=== PATIENT | female | born 1940 | race Caucasian/White ===

== ENCOUNTER → 2016-05-16 | Outpatient (CLI) | payer MEDICARE, OTHER ==
[~2016-05-16] MED LIST: /CLON1TA OR; ARTHROTEC PO; EFFE150C OR; FURO20TA2 OR; MULTIVIT PO; hydrocodone PO
--- NOTE | 2016-05-16 10:51 | REPMRS ---
Patient History The patient states she had a clinical breast exam in 2015. Patient has history of breast cancer at age 61. Family history of breast cancer in 2 sisters at age 50, breast cancer in mother at age 50, and unknown cancer in brother at age 45. Digital Mammo Screening Bilat: May 16, 2016 - Exam #: [id number] Bilateral CC and MLO view(s) were taken. Technologist: Karla Shanks, Technologist Prior study comparison: May 13, 2015, bilateral digital mammo screening bilat performed at [facility]. May 12, 2014, bilateral digital mammo screening bilat performed at [facility]. May 06, 2013, bilateral digital mammo screening bilat performed at [facility]. FINDINGS: There are scattered fibroglandular densities. There has been no change in the appearance of the mammogram from the prior studies. There are stable post treatment changes in the left breast. There is a mild amount of scattered fibroglandular density which is fairly symmetric. There is no interval development of dominant mass, architectural distortion, or clustered microcalcification suggestive of malignancy. ASSESSMENT: BI-RADS/ACR category 1 mammogram. Negative. Recommendation Routine screening mammogram in 1 year (for women over age 40). This mammogram was interpreted with the aid of an FDA-approved computer-aided dectection system. Electronically Signed By: Varghese Zavala MD 05/16/16 [id number]
== END ==
LOC: M RAD 10:16
PROVIDERS: ATTEND Internal Medicine Medical Oncology
DX: Z12.31 Encounter for screening mammogram for malignant neoplasm of breast (principal); Z85.3 Personal history of malignant neoplasm of breast; Z08 Encounter for follow-up examination after completed treatment for malignant neoplasm

== ENCOUNTER → 2017-05-17 | Outpatient (CLI) | payer MEDICARE, OTHER | LOC: M RAD 10:33 | DX: Z12.4 Encounter for screening for malignant neoplasm of cervix (principal); Z12.31 Encounter for screening mammogram for malignant neoplasm of breast | CPT/HCPCS: 77067 ==

== ENCOUNTER → 2017-06-08 | Outpatient (CLI) | payer MEDICARE, OTHER ==
[2017-06-08 20:12] LABS: BASO % 0.4 % (0.0-1.0); EOS % 0.9 % (0.0-3.0); HEMATOCRIT 40.3 % (36.0-47.0); HEMOGLOBIN 13.3 g/dl (12.0-16.0); LYMPH # 1.4 10^3/uL (1.5-4.5); LYMPH % 30.5 % (24.0-44.0); MEAN CORPUSCULAR HEMOGLOBIN 28.9 pg (27.0-33.0); MEAN CORPUSCULAR VOLUME 87.6 fl (80.0-96.0); MONO # 0.6 10^3/uL (0.0-0.8); MONO % 11.9 % (0.0-5.0); NEUTROPHILS # 2.6 10^3/uL (1.8-7.7); NEUTROPHILS % 56.3 % (36.0-66.0); PLATELET COUNT, AUTOMATED 263 10^3/uL (150-450); RED CELL DISTRIBUTION WIDTH 11.6 % (11.5-14.5); WHITE BLOOD COUNT 4.6 10^3/uL (4.0-10.0)
[2017-06-08 20:34] LABS: ALBUMIN 3.8 GM/DL (3.2-5.2); ALKALINE PHOSPHATASE 78 U/L (45-117); ALT/SGPT 19 U/L (12-78); ANION GAP 9 MEQ/L (8-16); AST/SGOT 17 U/L (7-37); BILIRUBIN,TOTAL 0.4 MG/DL (0.2-1.0); BLOOD UREA NITROGEN 18 MG/DL (7-18); CALCIUM LEVEL 8.5 MG/DL (8.8-10.2); CARBON DIOXIDE LEVEL 31 MEQ/L (21-32); CHLORIDE LEVEL 97 MEQ/L (98-107); CREATININE FOR GFR 1.03 MG/DL (0.55-1.30); GLOMERULAR FILTRATION RATE 55.8 (>39); GLUCOSE, FASTING 94 MG/DL (70-100); POTASSIUM SERUM 4.1 MEQ/L (3.5-5.1); SODIUM LEVEL 137 MEQ/L (136-145); TOTAL PROTEIN 7.6 GM/DL (6.4-8.2)
== END ==
LOC: M ADAMS 13:43
DX: R42 Dizziness and giddiness (principal); J20.9 Acute bronchitis, unspecified
CPT/HCPCS: 80053

== ENCOUNTER 2018-07-27 16:42 | Emergency (ER) | payer MEDICARE, OTHER ==
[~2018-07-27] VITALS: Ht 162.6 cm; Wt 87.3 kg
[~2018-07-27 16:42] MED LIST changes: -ECOT81TA5 PO; -FURO40TA2; -POTA20TA6; -ZOFR4TAB16 PO
[2018-07-27] MEDS ORDERED: ECOT81TA5 PO (16:55)
[2018-07-27] MEDS ORDERED: FURO40TA2 (16:55)
[2018-07-27] MEDS ORDERED: POTA20TA6 (16:55)
[2018-07-27] MEDS ORDERED: NS 1,000 ML IV ONE (17:30)
[2018-07-27 17:33] LABS: BASO % 0.5 % (0.0-1.0); EOS # 0.1 10^3/uL (0.0-0.50); EOS % 1.4 % (0.0-3.0); HEMATOCRIT 42.3 % (36.0-47.0); LYMPH # 2.2 10^3/uL (1.5-4.5); LYMPH % 32.9 % (24.0-44.0); MEAN CORPUSCULAR HEMOGLOBIN 29.6 pg (27.0-33.0); MEAN CORPUSCULAR HGB CONC 33.1 g/dl (32.0-36.5); MEAN CORPUSCULAR VOLUME 89.4 fl (80.0-96.0); MONO # 0.6 10^3/uL (0.0-0.8); MONO % 9.7 % (0.0-5.0); NEUTROPHILS # 3.7 10^3/uL (1.8-7.7); NEUTROPHILS % 55.2 % (36.0-66.0); PLATELET COUNT, AUTOMATED 274 10^3/uL (150-450); RED BLOOD COUNT 4.73 10^6/uL (4.00-5.40); WHITE BLOOD COUNT 6.6 10^3/uL (4.0-10.0)
[2018-07-27 18:02] LABS: BILIRUBIN,DIRECT 0.1 MG/DL (0.0-0.2); BILIRUBIN,TOTAL 0.6 MG/DL (0.2-1.0); CALCIUM LEVEL 9.7 MG/DL (8.8-10.2); CREATININE FOR GFR 1.48 MG/DL (0.55-1.30); GLOMERULAR FILTRATION RATE 36.6 (>39); POTASSIUM SERUM 3.8 MEQ/L (3.5-5.1)
--- NOTE | 2018-07-27 18:45 | REP ---
Acute abdomen series: Three views. History: Abdomen pain. Comparison study: June 08, 2017. Findings: Upright chest radiograph shows no evidence of infiltrate or free subdiaphragmatic air. Heart is not enlarged. EKG electrodes are seen. There are clips in the right upper quadrant of the abdomen and in the left axillary soft tissues. Supine and cross-table lateral views of the abdomen show no evidence of free intraperitoneal air. Right upper quadrant clips are noted. Bowel gas pattern is unremarkable. Air and stool is seen in a nondistended colon. No small bowel dilation is seen. The patient is status post lumbar laminectomy L4 and L5. Impression: Unremarkable bowel gas pattern. Right upper quadrant clips. No acute abnormality. Electronically Signed by James Zavala MD 07/27/2018 08:14 P
[2018-07-27] MEDS ORDERED: ZOFR4TAB16 PO (21:21)
[2018-07-27] MEDS ORDERED: ONDANSETRON 4 MG ORAL DISINTEGRATING TAB (Q0162 PER 1MG) PO ONE (21:30)
[2018-07-27 21:31] VITALS: BP 122/56
--- NOTE | 2018-07-27 22:01 | ECGEPIP ---
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
== END 2018-07-27 22:04 | disposition home or self-care (01) ==
LOC: M ED 16:42
DX: N17.9 Acute kidney failure, unspecified (principal); E86.0 Dehydration; F33.9 Major depressive disorder, recurrent, unspecified; M19.90 Unspecified osteoarthritis, unspecified site; G89.29 Other chronic pain; M54.9 Dorsalgia, unspecified; Z79.899 Other long term (current) drug therapy; Z79.82 Long term (current) use of aspirin; Z88.5 Allergy status to narcotic agent
CPT/HCPCS: 36415; 74021; 80048; 80076; 82150; 83690; 85025; 93005; 93041; 99285; Q0162

== ENCOUNTER → 2018-07-27 | Outpatient (REF) | payer MEDICARE, OTHER ==
[~2018-07-27] MED LIST changes: -/CLON1TA OR; +CLON-412 OR; +ECOT81TA5 PO; +FURO40TA2; +POTA20TA6; +ZOFR4TAB16 PO
[2018-07-27 17:33] LABS: AMYLASE 35 U/L (25-115); LIPASE 115 U/L (73-393)
== END ==
LOC: M LAB REF 16:52
PROVIDERS: ATTEND Nurse Practitioner Family
DX: R10.9 Unspecified abdominal pain (principal)

== ENCOUNTER → 2018-09-19 | Outpatient (CLI) | payer MEDICARE, OTHER ==
[~2018-09-19] MED LIST changes: +E-Z-GAS II EFFERVESCENT PACKET (SODIUM BICARB./CITRIC ACID/SIMETHICONE) As Ordered ONE; +E-Z-HD 98% w/w 340GM SUSP BTL As Ordered ONE; +E-Z-PAQUE 96% w/w SUSP 176GM BTL As Ordered ONE; +ECOT81TA5 PO; +FURO40TA2; +POTA20TA6; +ZOFR4TAB16 PO
--- NOTE | 2018-09-19 20:09 | REP ---
Examination Requested: Upper G.I. Series With KUB Reason For Exam: Nausea lack of appetite Upper GI Air Contrast The procedure was performed by FRANKLIN Bill, under the direct supervision of Dr. White. The images were reviewed with Dr. White. The cleat feeder film shows no organomegaly or pathological masses. The intestinal gas pattern appears normal. Surgical melissa are noted in the right upper quadrant. Liquid barium and gas producing crystals were given in the erect position as well as liquid barium in the prone oblique position in order to perform a double contrast upper GI examination. The oral and pharyngeal stages of deglutition were unremarkable. Esophageal transport is efficient and there is no esophagitis, stricture, or mucosal ring noted. There are mild tertiary contractions noted throughout the exam. There is a small hiatal hernia. Gastroesophageal reflux was noted throughout the course of the exam. The stomach restrepo are normally outlined. The rugal folds are smooth and regular. There is no gastritis, neoplasm, ulcer disease noted. The duodenal restrepo are normally outlined. There is a large duodenal diverticulum. The mucosal folds are smooth and regular. There is no duodenitis, peptic ulcer disease, or neoplasm noted. The visualized portion of the proximal small bowel appears normal in course and caliber. Impression: 1. Large duodenal diverticulum. 2. Gastroesophageal reflux. 3. Mild tertiary contractions. 4. Small hiatal hernia. 0.8 minutes of fluoroscopy time was utilized for this procedure. Reviewed by FRANKLIN Ma 09/19/2018 05:03 P Electronically Signed by Dony White MD 09/19/2018 08:00 P
== END ==
LOC: M RAD 09:51
PROVIDERS: ATTEND Internal Medicine
DX: R11.0 Nausea (principal); R63.0 Anorexia; K57.10 Diverticulosis of small intestine without perforation or abscess without bleeding; K21.9 Gastro-esophageal reflux disease without esophagitis; K44.9 Diaphragmatic hernia without obstruction or gangrene

== ENCOUNTER 2019-10-30 14:06 | Emergency (ER) | payer MEDICARE, OTHER ==
[~2019-10-30 14:06] MED LIST changes: -E-Z-GAS II EFFERVESCENT PACKET (SODIUM BICARB./CITRIC ACID/SIMETHICONE) As Ordered ONE; -E-Z-HD 98% w/w 340GM SUSP BTL As Ordered ONE; -E-Z-PAQUE 96% w/w SUSP 176GM BTL As Ordered ONE
[2019-10-30 15:01] LABS: BASO % 0.5 % (0.0-1.0); EOS # 0.1 10^3/uL (0.0-0.5); HEMOGLOBIN 13.8 g/dl (12.0-15.5); LYMPH # 1.4 10^3/uL (1.5-5.0); LYMPH % 21.1 % (24.0-44.0); MEAN CORPUSCULAR HEMOGLOBIN 29.4 pg (27.0-33.0); MEAN CORPUSCULAR HGB CONC 32.9 g/dl (32.0-36.5); MEAN CORPUSCULAR VOLUME 89.4 fl (80.0-96.0); MONO # 0.6 10^3/uL (0.0-0.8); MONO % 8.9 % (0.0-5.0); NEUTROPHILS # 4.4 10^3/uL (1.5-8.5); NEUTROPHILS % 67.3 % (36.0-66.0); PLATELET COUNT, AUTOMATED 312 10^3/uL (150-450); WHITE BLOOD COUNT 6.5 10^3/uL (4.0-10.0)
[2019-10-30 15:10] LABS: INR 1.13; PROTHROMBIN TIME 14.2 SECONDS (11.8-14.0)
[2019-10-30 15:11] LABS: PARTIAL THROMBOPLASTIN TIME 31.6 SECONDS (25.0-38.4)
[2019-10-30 15:37] LABS: ALBUMIN 3.7 GM/DL (3.2-5.2); ALT/SGPT 23 U/L (12-78); BILIRUBIN,DIRECT 0.1 MG/DL (0.0-0.2); BILIRUBIN,TOTAL 0.4 MG/DL (0.2-1.0); BLOOD UREA NITROGEN 18 MG/DL (7-18); CALCIUM LEVEL 8.9 MG/DL (8.8-10.2); CARBON DIOXIDE LEVEL 32 MEQ/L (21-32); CHLORIDE LEVEL 103 MEQ/L (98-107); CK-MB VALUE MASS < 1.0 NG/ML (<3.6); CPK CREATINE PHOSPHOKINASE 50 U/L (26-192); CREATININE FOR GFR 1.24 MG/DL (0.55-1.30); FREE T4 1.18 NG/DL (0.76-1.46); GLOMERULAR FILTRATION RATE 44.8 (>39); GLUCOSE, FASTING 117 MG/DL (70-100); LIPASE 117 U/L (73-393); POTASSIUM SERUM 4.3 MEQ/L (3.5-5.1); SODIUM LEVEL 141 MEQ/L (136-145); TOTAL PROTEIN 7.5 GM/DL (6.4-8.2); TROPONIN I < 0.02 NG/ML (< 0.10)
[2019-10-30] MEDS ORDERED: ISOVUE-370 76% 100ML VIAL As Ordered ONE (16:05)
--- NOTE | 2019-10-30 16:42 | REPVR ---
PROCEDURE INFORMATION: Exam: CT Head Without Contrast Exam date and time: 10/30/2019 4:04 PM Age: 78 years old Clinical indication: Dizziness TECHNIQUE: Imaging protocol: Computed tomography of the head without contrast. Radiation optimization: All CT scans at this facility use at least one of these dose optimization techniques: automated exposure control; mA and/or kV adjustment per patient size (includes targeted exams where dose is matched to clinical indication); or iterative reconstruction. COMPARISON: No relevant prior studies available. FINDINGS: Brain: Frontal lobe predominant cerebral volume loss as well as cerebellar volume loss. No hemorrhage or edema seen. Ventricles: The ventricles appear mildly enlarged in keeping with volume loss. Bones/joints: Unremarkable. No acute fracture. Sinuses: Visualized sinuses are unremarkable. No fluid levels. Mastoid air cells: Visualized mastoid air cells are well aerated. Soft tissues: Unremarkable. IMPRESSION: No acute intracranial abnormality seen. Electronically signed by: Andreea Hall On 10/30/2019 16:42:01 PM
--- NOTE | 2019-10-30 17:22 | REP ---
CHEST: REASON: Chest pain. COMPARISON: Frontal view, obtained as part of an abdominal series, 07/27/2018. The technique utilized in obtaining the radiograph has magnified the cardiac silhouette and accentuated the interstitial markings. FINDINGS: The superior mediastinal structures are midline. The cardiac silhouette is unremarkable in size, shape, and position. The diaphragmatic surfaces of the lungs are regular, and the costophrenic angles are clear. The pulmonary hardin are clear. The imaged osseous structures are intact. IMPRESSION: There is no acute cardiopulmonary disease. Electronically Signed by Jamil Smith DO 10/30/2019 06:46 P
--- NOTE | 2019-10-30 17:53 | ECGEPIP ---
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
[2019-10-30] MEDS ORDERED: NS 500 ML IV ONE (18:15)
[2019-10-30 19:30] VITALS: BP 117/60
[2019-10-30 19:53] VITALS: O2SAT 100
--- NOTE | 2019-10-31 02:45 | REP ---
REASON: Lower quadrant pain. COMPARISON: None. CONTRAST: 100 mL [id number]. The lung bases are clear. There are surgical clips in the gallbladder fossa from previous cholecystectomy. The liver, spleen, pancreas, adrenal glands, and kidneys are within normal limits. There are tiny bilateral renal cortical cysts. The abdominal aorta and para-aortic regions are within normal limits. There is colonic diverticulosis. The bowel loops and their mesenteries are otherwise unremarkable. There is no free fluid or free air. There is no mass or adenopathy. Bone window technique throughout the examination shows the osseous structures to be within normal limits for the patient's age of 78 years. IMPRESSION: 1. Colonic diverticulosis without evidence of diverticulitis. 2. Tiny incidental renal cysts. 3. No evidence of acute intra-abdominal or intrapelvic disease. Electronically Signed by Jamil Smith DO 10/31/2019 08:10 A
== END 2019-10-30 20:00 | disposition home or self-care (01) ==
LOC: M ED 14:06
DX: R55 Syncope and collapse (principal); G43.909 Migraine, unspecified, not intractable, without status migrainosus; F32.9 Major depressive disorder, single episode, unspecified; F41.9 Anxiety disorder, unspecified; G47.33 Obstructive sleep apnea (adult) (pediatric); Z85.3 Personal history of malignant neoplasm of breast; I87.2 Venous insufficiency (chronic) (peripheral); K57.30 Diverticulosis of large intestine without perforation or abscess without bleeding; N28.1 Cyst of kidney, acquired; Z79.82 Long term (current) use of aspirin; Z79.899 Other long term (current) drug therapy; Z88.5 Allergy status to narcotic agent
CPT/HCPCS: 36415; 70450; 71045; 74177; 80048; 80076; 82550; 82553; 83690; 84439; 84443; 84484; 85025; 85610; 85730; 93005; 93041; 94760; 96360; 99285; Q9967

== ENCOUNTER 2021-02-17 12:42 | Emergency (ER) | payer MEDICARE, OTHER ==
[~2021-02-17] VITALS: Ht 162.6 cm; Wt 95.5 kg
[2021-02-17 12:44] VITALS: BP 131/67
--- OUTSIDE RECORDS SUMMARY | 2021-02-17 12:50 | CCD ---
Author Author [facility] Organization [facility] Address Unknown Phone Unavailable Care Team Providers Care Senior Contract Specialist Name Role Phone Андрей Urbina MD Unavailable Unavailable Андрей Urbina MD Unavailable Unavailable Андрей Urbina MD Unavailable Unavailable Андрей Urbina MD Unavailable Unavailable Андрей Urbina MD Unavailable Unavailable Андрей Urbina MD Unavailable Unavailable Андрей Urbina MD Unavailable Unavailable Андрей Urbina MD Unavailable Unavailable Андрей Urbina MD Unavailable Unavailable Андрей Urbina MD Unavailable Unavailable Андрей Urbina MD Unavailable Unavailable Андрей Urbina MD Unavailable Unavailable Андрей Urbina MD Unavailable Unavailable Андрей Urbina MD Unavailable Unavailable Андрей Urbina MD Unavailable Unavailable Андрей Urbina MD Unavailable Unavailable Андрей Urbina MD Unavailable Unavailable Андрей Urbina MD Unavailable Unavailable Андрей Urbina MD Unavailable Unavailable Андрей Urbina MD Unavailable Unavailable Андрей Urbina MD Unavailable Unavailable Андрей Urbina MD Unavailable Unavailable Андрей Urbina MD Unavailable Unavailable Андрей Urbina MD Unavailable Unavailable Аднрей Urbina MD Unavailable Unavailable Андрей Urbina MD Unavailable Unavailable Андрей Urbina MD Unavailable Unavailable Андрей Urbina MD Unavailable Unavailable Андрей Urbina MD Unavailable Unavailable Андрей Urbina MD Unavailable Unavailable Андрей Urbina MD Unavailable Unavailable Андрей Urbina MD Unavailable Unavailable Андрей Urbina MD Unavailable Unavailable Андрей Urbina MD Unavailable Unavailable Андрей Urbina MD Unavailable Unavailable Андрей Urbina MD Unavailable Unavailable Андрей Urbina MD Unavailable Unavailable [place]Ан[place]рей MD Unavailable Unavailable CarlitosАндрей MD Unavailable Unavailable CarlitosАндрей MD Unavailable Unavailable CarlitosАндрей MD Unavailable Unavailable [place], Андрей Mendoza MD Unavailable Unavailable [place] MD Unavailable Unavailable CarlitosАндрей MD Unavailable Unavailable [place]ей MD Unavailable Unavailable [place]Ан[place]рей MD Unavailable Unavailable [place]рей MD Unavailable Unavailable [place]Ан[place]рей MD Unavailable Unavailable [place]Ан[place]рей MD Unavailable Unavailable [place]Ан[place]рей MD Unavailable Unavailable CarlitosАндрей MD Unavailable Unavailable CarlitosАндрей MD Unavailable Unavailable [place]Ан[place]рей MD Unavailable Unavailable [place]Ан[place]рей MD Unavailable Unavailable [place]Ан[place]ей MD Unavailable Unavailable CarlitosАндрей MD Unavailable Unavailable [place]Андрей MD Unavailable Unavailable CarlitosАндрей MD Unavailable Unavailable CarlitosАндрей MD Unavailable Unavailable CarlitosАндрей MD Unavailable Unavailable [place] MD Unavailable Unavailable CarlitosАндрей MD Unavailable Unavailable CarlitosАндрей MD Unavailable Unavailable [place] MD Unavailable Unavailable CarlitosАндрей MD Unavailable Unavailable [place] MD Unavailable Unavailable [place]Андрей MD Unavailable Unavailable CarlitosАндрей MD Unavailable Unavailable [place] MD Unavailable Unavailable [place]ей MD Unavailable Unavailable [place] MD Unavailable Unavailable CarlitosАндрей MD Unavailable Unavailable CarlitosАндрей horner MD Unavailable Unavailable CarlitosАндрей MD Unavailable Unavailable [place] MD Unavailable Unavailable CarlitosАндрей MD Unavailable Unavailable [place]Ан[place] MD Unavailable Unavailable [place]Ан[place]рей MD Unavailable Unavailable CarlitosАндрей MD Unavailable Unavailable CarlitosнАдрей MD Unavailable Unavailable [place]Ан[place] MD Unavailable Unavailable CarlitosАндрей MD Unavailable Unavailable [place] MD Unavailable Unavailable [place] MD Unavailable Unavailable CarlitosАндрей MD Unavailable Unavailable [place] MD Unavailable Unavailable Potter, M Abimbola EXECUTIVE CASINO HOST Unavailable Unavailable Potter, M Abimbola EXECUTIVE CASINO HOST Unavailable Unavailable Potter, M Abimbola EXECUTIVE CASINO HOST Unavailable Unavailable Potter, M Abimbola EXECUTIVE CASINO HOST Unavailable Unavailable Potter, M Abimbola EXECUTIVE CASINO HOST Unavailable Unavailable Potter, M Abimbola EXECUTIVE CASINO HOST Unavailable Unavailable Potter, M Abimbola EXECUTIVE CASINO HOST Unavailable Unavailable Potter, M Abimbola EXECUTIVE CASINO HOST Unavailable Unavailable Potter, M Abimbola EXECUTIVE CASINO HOST Unavailable Unavailable Potter, M Abimbola EXECUTIVE CASINO HOST Unavailable Unavailable Potter, M Abimbola EXECUTIVE CASINO HOST Unavailable Unavailable Potter, M Abimbola EXECUTIVE CASINO HOST Unavailable Unavailable Potter, M Abimbola EXECUTIVE CASINO HOST Unavailable Unavailable Potter, M Abimbola EXECUTIVE CASINO HOST Unavailable Unavailable Potter, M Abimbola EXECUTIVE CASINO HOST Unavailable Unavailable Potter, M Abimbola EXECUTIVE CASINO HOST Unavailable Unavailable Potter, M Abimbola EXECUTIVE CASINO HOST Unavailable Unavailable Potter, M Abimbola EXECUTIVE CASINO HOST Unavailable Unavailable Potter, M Abimbola EXECUTIVE CASINO HOST Unavailable Unavailable Potter, M Abimbola EXECUTIVE CASINO HOST Unavailable Unavailable Potter, M Abimbola EXECUTIVE CASINO HOST Unavailable Unavailable Potter, M Abimbola EXECUTIVE CASINO HOST Unavailable Unavailable Potter, M Abimbola EXECUTIVE CASINO HOST Unavailable Unavailable Potter, M Abimbola EXECUTIVE CASINO HOST Unavailable Unavailable Potter, M Abimbola EXECUTIVE CASINO HOST Unavailable Unavailable Potter, M Abimbola EXECUTIVE CASINO HOST Unavailable Unavailable Potter, M Abimbola EXECUTIVE CASINO HOST Unavailable Unavailable Potter, M Abimbola EXECUTIVE CASINO HOST Unavailable Unavailable Potter, M Abimbola EXECUTIVE CASINO HOST Unavailable Unavailable Potter, M Abimbola EXECUTIVE CASINO HOST Unavailable Unavailable Potter, M Abimbola EXECUTIVE CASINO HOST Unavailable Unavailable Potter, M Abimbola EXECUTIVE CASINO HOST Unavailable Unavailable Potter, M Abimbola EXECUTIVE CASINO HOST Unavailable Unavailable Potter, M Abimbola EXECUTIVE CASINO HOST Unavailable Unavailable Potter, M Abimbola EXECUTIVE CASINO HOST Unavailable Unavailable Potter, M Abimbola EXECUTIVE CASINO HOST Unavailable Unavailable Potter, M Abimbola EXECUTIVE CASINO HOST Unavailable Unavailable Potter, M Abimbola EXECUTIVE CASINO HOST Unavailable Unavailable Potter, M Abimbola EXECUTIVE CASINO HOST Unavailable Unavailable Potter, M Abimbola EXECUTIVE CASINO HOST Unavailable Unavailable Potter, M Abimbola EXECUTIVE CASINO HOST Unavailable Unavailable Potter, M Abimbola EXECUTIVE CASINO HOST Unavailable Unavailable Potter, M Abimbola EXECUTIVE CASINO HOST Unavailable Unavailable Potter, M Abimbola EXECUTIVE CASINO HOST Unavailable Unavailable Potter, M Abimbola EXECUTIVE CASINO HOST Unavailable Unavailable Potter, M Abimbola EXECUTIVE CASINO HOST Unavailable Unavailable Potter, M Abimbola EXECUTIVE CASINO HOST Unavailable Unavailable Potter, M Abimbola EXECUTIVE CASINO HOST Unavailable Unavailable Potter, M Abimbola EXECUTIVE CASINO HOST Unavailable Unavailable Potter, M Abimbola EXECUTIVE CASINO HOST Unavailable Unavailable Potter, M Abimbola EXECUTIVE CASINO HOST Unavailable Unavailable Potter, M Abimbola EXECUTIVE CASINO HOST Unavailable Unavailable Potter, M Abimbola EXECUTIVE CASINO HOST Unavailable Unavailable Potter, M Abimbola EXECUTIVE CASINO HOST Unavailable Unavailable Potter, M Abimbola EXECUTIVE CASINO HOST Unavailable Unavailable Potter, M Abimbola EXECUTIVE CASINO HOST Unavailable Unavailable Potter, M Abimbola EXECUTIVE CASINO HOST Unavailable Unavailable Ebony Karimi NP Unavailable Unavailable Re-disclosure Warning The records that you are about to access may contain information from federally-assisted alcohol or drug abuse programs. If such information is present, then the following federally mandated warning applies: This information has been disclosed to you from records protected by federal confidentiality rules (42 CFR part 2). The federal rules prohibit you from making any further disclosure of this information unless further disclosure is expressly permitted by the written consent of the person to whom it pertains or as otherwise permitted by 42 CFR part 2. A general authorization for the release of medical or other information is NOT sufficient for this purpose. The Federal rules restrict any use of the information to criminally investigate or prosecute any alcohol or drug abuse patient.The records that you are about to access may contain highly sensitive health information, the redisclosure of which is protected by Article 27-F of the [facility] Public Health law. If you continue you may have access to information: Regarding HIV / AIDS; Provided by facilities licensed or operated by the [facility] Office of Mental Health; or Provided by the [facility] Office for People With Developmental Disabilities. If such information is present, then the following [facility] mandated warning applies: This information has been disclosed to you from confidential records which are protected by state law. State law prohibits you from making any further disclosure of this information without the specific written consent of the person to whom it pertains, or as otherwise permitted by law. Any unauthorized further disclosure in violation of state law may result in a fine or penitentiary sentence or both. A general authorization for the release of medical or other information is NOT sufficient authorization for further disc losure. Family History Family Member Name Family Member Gender Family Member Status Date o f Status Description Data Source(s) Unknown Female Problem [facility] ([facility]) Unknown Female Problem [facility] ([facility]) Unknown Female Problem [facility] ([facility]) Unknown Female Problem [facility] ([facility]) Unknown Unknown Problem [facility] ([facility]) Encounters Encounter Providers Location Date Indications Data Source(s ) Outpatient Attender: Abimbola Karimi NP 02/09/2021 01:45:0 0 PM EDT Xray [facility] Xray Outpatient Attender: Reji Medellin 0 04/23/2020 08:40:00 AM EST [facility] ([facility] ) Immunizations Vaccine Date Status Description Data Source(s) COVID-19 VACCINE Moderna 07/13/2020 12:00:00 AM EDT completed [facility] Vaccine Series Complete: YESThis Data wa s Submitted to [facility] Via [employer]. COVID-19 VACCINE Moderna 06/14/2020 12:00:00 AM EST completed [facility] Vaccine Series Complete: NOThis Data was Submitted to [facility] Via [employer]. Medications Medication Brand Name Start Date Product Form Dose Route Admi nistrative Instructions Pharmacy Instructions Status Indications Reaction Description Data Source(s) Furosemide 40 MG Oral Tablet Furosemide 04/23/2020 12:00:00 AM EST active [facility] ([facility]) Ondansetron 4 MG Oral Tablet [Zofran] Zofran 11/14/2019 12:00:00 AM EDT ORAL completed [facility] ([facility]) Insurance Providers Payer name Policy type / Coverage type Policy ID Covered democrat ID Covered democrat's relationship to melvin Policy Melvin Plan Information [employer] F [id number] Medicare C [id number] SELF [id number] D MEDICARE [id number] SP [id number] MEDICARE [id number] SP [id number] D MEDICARE M [id number] S [id number] D [place] Primary [id number] Self Billings Omise [facility] Part B [id number] Self OTHER COMMERCIAL [id number] SP [id number] MEDICARE [id number] SP [id number] SELF PAY Medicare Natl Govt Servic Medicare Primary [id number] Self [id number] MEDICARE C [id number] S [id number] D [employer] Commercial [id number] Self [id number] Medicare Natl Gov't Servi Medicare Primary [id number] Self [id number] Medicare Natl Govt Servic Medicare Primary [id number] Self [id number] Medicare Natl Govt Servic Medicare Primary [id number] Self 0 [id number] MEDICARE -O/P [id number] 18 [id number] COMMERCIAL -O/P [id number] 18 [id number] MEDICARE PART A -O/P [id number] 18 [id number] Medicare Dme Supplies Medigap Part B [id number] Self [employer] Medigap Part B [id number] Self Medicare Natl Govt Servic Medicare Primary [id number] Self Medicare Natl Gov't Servi Medicare Primary [id number] Self [employer] [id number] Self [employer] [id number] S [id number] MEDICARE PART A M [id number] S [id number] [employer] [place] [id number] S [id number] D MEDICARE C [id number] S [id number] [id number] [place] [facility] [place] [id number] S [id number] [facility] S [id number] S [id number] [employer] [id number] SP [id number] Medicare Natl Govt Servic Medicare Primary [id number] Self [id number] [employer] Medigap Part B [id number] Self [id number] Medicare Natl Govt Servic Medicare Primary [id number] Self 1 [id number] Medicare Natl Govt Servic Medicare Primary [id number] Self 1 [id number] Medicare Natl Govt Servic Medicare Primary [id number] Self 1 [id number] Problems, Conditions, and Diagnoses No Information Surgeries/Procedures No Information Results ID Date Data Source [id number] 02/09/2021 02:23:00 [place] [address] Patient Name: Mary Melendez Exam Date: 02/09/21 : 1940 Ordering Doctor: Abimbola Karimi Attending Doctor: Abimbola Karimi CC: EXAM: ANKLE, right side, four views. INDICATION: Ankle pain FINDINGS: There is no fracture or dislocation. The ankle mortise is intact. Bone density appears normal, and there is no significant degenerative change. CONCLUSION: Normal ankle. Professional interpretation performed by [facility] Medical Imaging at [facility] . End of diagnostic report: [id number] Signed: Satish Kim MD 02/09/21 1434 Interpreted by: Cipriano Kimcribed by: Satish Kim Name Value Range Interpretation Code Description Data Krupa rce(s) Supporting Document(s) ID Date Data Source [id number] 04/23/2020 10:18:00 AM EST [facility] ([facility]) Name Value Range Interpretation Code Description Data Krupa rce(s) Supporting Document(s) Thyrotropin [Units/volume] in Serum or Plasma by Detec tion limit <= 0.05 mIU/L 3.46 uIU/mL 0.36-3.74 [facility] ([facility] ) ID Date Data Source [id number] 04/23/2020 10:18:00 AM EST [facility] ([facility]) Name Value Range Interpretation Code Description Data Krupa rce(s) Supporting Document(s) Cholesterol [Mass/volume] in Serum or Plasma 246 mg/dL 131-200 [facility] ([facility]) Cholesterol in HDL [Mass/volume] in Serum or Plasma 48 mg/dL 35-60 [facility] ([facility]) Cholesterol in LDL [Mass/volume] in Serum or Plasma by calcu lation 162 CALC 50-159 [facility] ([facility]) Triglyceride [Mass/volume] in Serum or Plasma 180 mg/dL 30-150 [facility] ([facility]) ID Date Data Source [id number] 04/23/2020 10:18:00 AM EST [facility] ([facility]) Name Value Range Interpretation Code Description Data Krupa rce(s) Supporting Document(s) Glucose [Mass/volume] in Serum or Plasma 95 mg/dL 74-99 [facility] ([facility]) 100-125 mg/dL PRE-DIABETES/FASTING >126 mg/dL DIABETES/FASTING Urea nitrogen [Mass/volume] in Serum or Plasma 19 mg/dL 7-18 [facility] ([facility]) Creatinine 1.1 mg/dL 0.6-1.3 [facility] ([facility]) Sodium [Moles/volume] in Serum or Plasma 140 meq/L 136-145 [facility] ([facility]) Carbon dioxide, total [Moles/volume] in Serum or Plasma 33 meq/L 21 -32 [facility] ([facility]) Chloride [Moles/volume] in Serum or Plasma 102 meq/L 98-107 [facility] ([facility]) Potassium [Moles/volume] in Serum or Plasma 3.8 meq/L 3.5-5.1 [facility] ([facility]) Calcium [Mass/volume] in Serum or Plasma 8.5 mg/dL 8.5-10.1 [facility] ([facility]) Total Bilirubin 0.7 mg/dL 0.2-1.0 [facility] ([facility]) Alkaline phosphatase isoenzyme [Units/volume] in Serum or Pl asma 84 mg/dL 46-116 [facility] ([facility]) Alanine aminotransferase [Enzymatic activity/volume] in Seru m or Plasma 22 U/L 12-78 [facility] ([facility]) Aspartate aminotransferase [Enzymatic activity/volume] in Serum or Plasma 18 U/L 15-37 [facility] ([facility] ) Albumin [Mass/volume] in Serum or Plasma 3.5 g/dL 3.4-5.0 [facility] ([facility]) A/G Ratio 0.90 CALC 1.00-1.90 [facility]) Glomerular filtration rate/1.73 sq M pre dicted among non-blacks [Volume Rate/Area] in Serum or Plasma by Creatinine-based formula (MDRD) 48 mL/min [facility] Proteinase 3 Ab [Units/volume] in Serum 7.4 g/dL 6.4-8.2 [facility] Glomerular filtration rate/1.73 sq M pre dicted among blacks [Volume Rate/Area] in Serum or Plasma by Creatinine-based formula (MDRD) 58 mL/min [facility] <content>CHRONIC KIDNEY DISEASE STAGING PER NKF</content>
<content></content>
<content>STAGE I & II GFR >= 60 NORMAL TO MILDLY DECREASED</content>
<content>STAGE III GFR 30-59 MODERATELY DECREASED</content>
<content>STAGE IV GFR 15-29 SEVERELY DECREASED</content>
<content>STAGE V GFR <15 VERY LITTLE GFR LEFT</content>
<content>ESRD GFR <15 ON ELECTRIC METER REPAIRER HELPER</content>
<content></content> ID Date Data Source [id number] 04/23/2020 10:18:00 AM EST [facility] ([facility]) Name Value Range Interpretation Code Description Data Krupa rce(s) Supporting Document(s) Hemoglobin [Mass/volume] in Blood 13.9 g/dL 12.0-18.0 [facility] ([facility]) Erythrocytes [#/volume] in Blood by Automated count 4.86 x10*6/UL 4.2 0-6.30 [facility] Leukocytes [#/volume] in Blood by Automated count 5.5 x10*3/UL 4.1-10 .9 [facility] MCV 83.7 fL 80.0-97.0 [facility] MCH 28.6 pg 26.0-32.0 [facility] Hematocrit [Volume Fraction] of Blood by Automated count 40.7 % 3 7.0-51.0 [facility] ([facility]) MCHC 34.1 g/dL 31.0-38.0 [facility] ([facility]) Erythrocyte distribution width [Ratio] by Automated count 13.0 % 11.6-13.7 [facility] ([facility]) Lymph % 33.1 % 10.0-58.5 [facility] MPV 8.2 FL 7.8-11.0 [facility] ([facility]) Platelets [#/volume] in Blood by Automated count 260 x10*3/UL 140-440 [facility] ([facility]) Lymph # 1.8 x10*3/UL 0.6-4.1 [facility] ([facility]) Mid % 7.4 % 1.7-9.3 [facility] Neut % 59.5 % 37.0-92.0 [facility] Mid # 0.4 x10*3/UL 0.1-0.6 [facility] ([facility]) Neut # 3.3 x10*3/UL 2.0-7.8 [facility] ([facility]) Procedure Social History No Information Vital Signs ID Date Data Source UNK Name Value Range Interpretation Code Description Data Source(s) Systolic blood pressure 130 mm[Hg] 130 mm[Hg] M EDENT ([facility]) Diastolic blood pressure 80 mm[Hg] 80 mm[Hg] [facility] ([facility]) Body height 64 [in_i] 64 [in_i] [facility] ([facility]) 5'4" Body weight 207.25 [lb_av] 207.25 [lb_av] MEDEN T ([facility]) Body mass index (BMI) [Ratio] 35.6 kg/m2 35.6 k g/m2 [facility] ([facility])
--- OUTSIDE RECORDS SUMMARY | 2021-02-17 15:13 | CCD ---
Author Author [facility] Organization [facility] Address Unknown Phone Unavailable Care Team Providers Care Mobile Battery Technician Name Role Phone Андрей Urbina MD Unavailable [...] Unavailable Unavailable Андрей Urbina MD Unavailable Unavailable GothamАндрей MD Unavailable Unavailable CarlitosАндрей MD Unavailable Unavailable CarlitosАндрей MD Unavailable Unavailable CarlitosАндрей MD Unavailable Unavailable Gotham, Андрей Mendoza MD Unavailable Unavailable GothamАндрей MD Unavailable Unavailable CarlitosАндрей MD Unavailable Unavailable GothamАндрей MD Unavailable Unavailable GothamАндрей MD Unavailable Unavailable GothamАндрей MD Unavailable Unavailable GothamАндрей MD Unavailable Unavailable GothamАндрей MD Unavailable Unavailable GothamАндрей MD Unavailable Unavailable CarlitosАндрей MD Unavailable Unavailable CarlitosАндрей MD Unavailable Unavailable GothamАндрей MD Unavailable Unavailable GothamАндрей MD Unavailable Unavailable GothamАндрей MD Unavailable Unavailable CarlitosАндрей MD Unavailable Unavailable GothamАндрей MD Unavailable Unavailable CarlitosАндрей MD Unavailable Unavailable CarlitosАндрей MD Unavailable Unavailable CarlitosАндрей MD Unavailable Unavailable GothamАндрей MD Unavailable Unavailable CarlitosАндрей MD Unavailable Unavailable CarlitosАндрей MD Unavailable Unavailable GothamАндрей MD Unavailable Unavailable CarlitosАндрей MD Unavailable Unavailable GothamАндрей MD Unavailable Unavailable GothamАндрей MD Unavailable Unavailable CarlitosАндрей MD Unavailable Unavailable GothamАндрей MD Unavailable Unavailable GothamАндрей MD Unavailable Unavailable GothamАндрей MD Unavailable Unavailable CarlitosАндрей MD Unavailable Unavailable CarlitosАндрей horner MD Unavailable Unavailable CarlitosАндрей MD Unavailable Unavailable GothamАндрей MD Unavailable Unavailable CarlitosАндрей MD Unavailable Unavailable GothamАндрей MD Unavailable Unavailable GothamАндрей MD Unavailable Unavailable CarlitosАндрей MD Unavailable Unavailable CarlitosАндрей MD Unavailable Unavailable GothamАндрей MD Unavailable Unavailable CarlitosАндрей MD Unavailable Unavailable GothamАндрей MD Unavailable Unavailable GothamАндрей MD Unavailable Unavailable CarlitosАндрей MD Unavailable Unavailable GothamАндрей MD Unavailable Unavailable Potter, M Abimbola CATEGORY ANALYST Unavailable Unavailable Potter, M Abimbola CATEGORY ANALYST Unavailable Unavailable Potter, M Abimbola CATEGORY ANALYST Unavailable Unavailable Potter, M Abimbola CATEGORY ANALYST Unavailable Unavailable Potter, M Abimbola CATEGORY ANALYST Unavailable Unavailable Potter, M Abimbola CATEGORY ANALYST Unavailable Unavailable Potter, M Abimbola CATEGORY ANALYST Unavailable Unavailable Potter, M Abimbola CATEGORY ANALYST Unavailable Unavailable Potter, M Abimbola CATEGORY ANALYST Unavailable Unavailable Potter, M Abimbola CATEGORY ANALYST Unavailable Unavailable Potter, M Abimbola CATEGORY ANALYST Unavailable Unavailable Potter, M Abimbola CATEGORY ANALYST Unavailable Unavailable Potter, M Abimbola CATEGORY ANALYST Unavailable Unavailable Potter, M Abimbola CATEGORY ANALYST Unavailable Unavailable Potter, M Abimbola CATEGORY ANALYST Unavailable Unavailable Potter, M Abimbola CATEGORY ANALYST Unavailable Unavailable Potter, M Abimbola CATEGORY ANALYST Unavailable Unavailable Potter, M Abimbola CATEGORY ANALYST Unavailable Unavailable Potter, M Abimbola CATEGORY ANALYST Unavailable Unavailable Potter, M Abimbola CATEGORY ANALYST Unavailable Unavailable Potter, M Abimbola CATEGORY ANALYST Unavailable Unavailable Potter, M Abimbola CATEGORY ANALYST Unavailable Unavailable Potter, M Abimbola CATEGORY ANALYST Unavailable Unavailable Potter, M Abimbola CATEGORY ANALYST Unavailable Unavailable Potter, M Abimbola CATEGORY ANALYST Unavailable Unavailable Potter, M Abimbola CATEGORY ANALYST Unavailable Unavailable Potter, M Abimbola CATEGORY ANALYST Unavailable Unavailable Potter, M Abimbola CATEGORY ANALYST Unavailable Unavailable Potter, M Abimbola CATEGORY ANALYST Unavailable Unavailable Potter, M Abimbola CATEGORY ANALYST Unavailable Unavailable Potter, M Abimbola CATEGORY ANALYST Unavailable Unavailable Potter, M Abimbola CATEGORY ANALYST Unavailable Unavailable Potter, M Abimbola CATEGORY ANALYST Unavailable Unavailable Potter, M Abimbola CATEGORY ANALYST Unavailable Unavailable Potter, M Abimbola CATEGORY ANALYST Unavailable Unavailable Potter, M Abimbola CATEGORY ANALYST Unavailable Unavailable Potter, M Abimbola CATEGORY ANALYST Unavailable Unavailable Potter, M Abimbola CATEGORY ANALYST Unavailable Unavailable Potter, M Abimbola CATEGORY ANALYST Unavailable Unavailable Potter, M Abimbola CATEGORY ANALYST Unavailable Unavailable Potter, M Abimbola CATEGORY ANALYST Unavailable Unavailable Potter, M Abimbola CATEGORY ANALYST Unavailable Unavailable Potter, M Abimbola CATEGORY ANALYST Unavailable Unavailable Potter, M Abimbola CATEGORY ANALYST Unavailable Unavailable Potter, M Abimbola CATEGORY ANALYST Unavailable Unavailable Potter, M Abimbola CATEGORY ANALYST Unavailable Unavailable Potter, M Abimbola CATEGORY ANALYST Unavailable Unavailable Potter, M Abimbola CATEGORY ANALYST Unavailable Unavailable Potter, M Abimbola CATEGORY ANALYST Unavailable Unavailable Potter, M Abimbola CATEGORY ANALYST Unavailable Unavailable Potter, M Abimbola CATEGORY ANALYST Unavailable Unavailable Potter, M Abimbola CATEGORY ANALYST Unavailable Unavailable Potter, M Abimbola CATEGORY ANALYST Unavailable Unavailable Potter, M Abimbola CATEGORY ANALYST Unavailable Unavailable Potter, M Abimbola CATEGORY ANALYST Unavailable Unavailable Potter, M Abimbola CATEGORY ANALYST Unavailable Unavailable Potter, M Abimbola CATEGORY ANALYST Unavailable Unavailable Ebony Karimi NP Unavailable Unavailable [...] is protected by Article 27-F of the [facility] Public Health law. If you continue you may have access to information: Regarding HIV / AIDS; Provided by facilities licensed or operated by the [facility] Office of Mental Health; or Provided by the [facility] Office for People With Developmental Disabilities. If such information is present, then the following [facility] mandated warning applies: This information has [...] law may result in a fine or halfway sentence or both. A general authorization for the release of medical or other information is NOT sufficient authorization for further disc losure. Family History Family Member Name Family Member Gender Family Member Status Date o f Status Description Data Source(s) Unknown Female Problem [facility] ([facility]) Unknown Female Problem [facility] ([facility]) Unknown Female Problem [facility] ([facility]) Unknown Female Problem [facility] ([facility]) Unknown Unknown Problem [facility] ([facility]) Encounters Encounter Providers Location Date Indications Data Source(s ) Outpatient Attender: Abimbola Karimi NP 02/09/2021 01:45:0 0 PM EDT Xray [facility] Xray Outpatient Attender: Reji Medellin 0 04/23/2020 08:40:00 AM EST [facility] ([facility] ) Immunizations Vaccine Date Status Description Data Source(s) COVID-19 VACCINE Moderna 07/13/2020 12:00:00 AM EDT completed [place] Vaccine Series Complete: YESThis Data wa s Submitted to [facility] Via [employer]. COVID-19 VACCINE Moderna 06/14/2020 12:00:00 AM EST completed [place] Vaccine Series Complete: NOThis Data was Submitted to [facility] Via [employer]. Medications Medication Brand Name Start Date Product [...] relationship to melvin Policy Melvin Plan Information [employer] F [id number] SELF [id number] Medicare C [id number] SELF [id number] D MEDICARE [id number] SP [id number] MEDICARE [id number] SP [id number] D MEDICARE M [id number] S [id number] D Medicare [place] Primary [id number] Self [employer] [facility] Part B [id number] Self OTHER COMMERCIAL [id number] SP [id number] MEDICARE [id number] SP [id number] SELF PAY Medicare Natl Govt Servic Medicare Primary [id number] Self 0 [id number] MEDICARE C [id number] S [id number] D [employer] Commercial [id number] Self [id number] Medicare Natl Gov't Servi Medicare Primary [id number] Self [id number] Medicare Natl Govt Servic Medicare Primary [id number] Self 0 [id number] Medicare Natl Govt Servic Medicare Primary [id number] Self 0 [id number] MEDICARE -O/P [id number] 18 [id number] COMMERCIAL -O/P 1701 18 [id number] MEDICARE PART A -O/P [id number] 18 [id number] Medicare Dme Supplies Medigap Part B [id number] Self [employer] Medigap Part B [id number] Self Medicare Natl Govt Servic Medicare Primary [id number] Self Medicare Natl Gov't Servi Medicare Primary [id number] Self [employer] Commercial [id number] Self [place] [employer] [place] [id number] S [id number] MEDICARE PART A M [id number] S [id number] [employer] O [id number] S [id number] D MEDICARE C [id number] S [id number] [place] [facility] [place] [id number] S [id number] [facility] S [id number] S [id number] [employer] [id number] SP [id number] Medicare Natl Govt Servic Medicare Primary [id number] Self [id number] [employer] Medigap Part B [id number] Self [id number] Medicare Natl Govt Servic Medicare Primary [id number] Self 1 [id number] Medicare Natl Govt Servic Medicare Primary [id number] Self 1 [id number] Medicare Natl Govt Servic Medicare Primary [id number] Self 1 [id number] Problems, Conditions, and Diagnoses No Information Surgeries/Procedures No Information Results ID Date Data Source [id number] 02/09/2021 02:23:00 [place] [address] Patient Name: Mary Melendez Exam Date: 02/09/21 : 1940 Ordering Doctor: Abimbola Karimi Attending Doctor: Abimbola Karimi CC: EXAM: ANKLE, right side, four views. INDICATION: Ankle pain FINDINGS: There is no fracture or dislocation. The ankle mortise is intact. Bone density appears normal, and there is no significant degenerative change. CONCLUSION: Normal ankle. Professional interpretation performed by [facility] Medical Imaging at [facility] . End of diagnostic report: [id number] Signed: Satish Kim MD 02/09/21 1434 Interpreted by: Cipriano Kimcribed by: Satish Kim Name Value Range Interpretation Code Description Data Krupa rce(s) Supporting Document(s) ID Date Data Source [id number] 04/23/2020 10:18:00 AM EST [facility] ([facility]) Name Value Range Interpretation Code Description Data Krupa rce(s) Supporting Document(s) Thyrotropin [Units/volume] in Serum or Plasma by Detec tion limit <= 0.05 mIU/L 3.46 uIU/mL 0.36-3.74 [facility] ([facility] ) ID Date Data Source [id number] 04/23/2020 10:18:00 AM EST [facility] ([facility]) Name Value Range Interpretation Code Description Data Krupa rce(s) Supporting Document(s) Cholesterol [Mass/volume] in Serum or Plasma 246 mg/dL 131-200 [facility] ([facility]) Cholesterol in HDL [Mass/volume] in Serum or Plasma 48 mg/dL 35-60 [facility] ([facility]) Cholesterol in LDL [Mass/volume] in Serum or Plasma by calcu lation 162 CALC 50-159 [facility] ([facility]) Triglyceride [Mass/volume] in Serum or Plasma 180 mg/dL 30-150 [facility] ([facility]) ID Date Data Source [id number] 04/23/2020 10:18:00 AM EST [facility] ([facility]) Name Value Range Interpretation Code Description Data Krupa rce(s) Supporting Document(s) Glucose [Mass/volume] in Serum or Plasma 95 mg/dL 74-99 [facility] ([facility]) 100-125 mg/dL PRE-DIABETES/FASTING >126 mg/dL DIABETES/FASTING Urea nitrogen [Mass/volume] in Serum or Plasma 19 mg/dL 7-18 [facility] ([facility]) Creatinine 1.1 mg/dL 0.6-1.3 [facility] ([facility]) Sodium [Moles/volume] in Serum or Plasma 140 meq/L 136-145 [facility] ([facility]) Carbon dioxide, total [Moles/volume] in Serum or Plasma 33 meq/L 21 -32 [facility] ([facility]) Chloride [Moles/volume] in Serum or Plasma 102 meq/L 98-107 [facility] ([facility]) Potassium [Moles/volume] in Serum or Plasma 3.8 meq/L 3.5-5.1 [facility] ([facility]) Calcium [Mass/volume] in Serum or Plasma 8.5 mg/dL 8.5-10.1 [facility] ([facility]) Total Bilirubin 0.7 mg/dL 0.2-1.0 [facility] ([facility]) Alkaline phosphatase isoenzyme [Units/volume] in Serum or Pl asma 84 mg/dL 46-116 [facility] ([facility]) Alanine aminotransferase [Enzymatic activity/volume] in Seru m or Plasma 22 U/L 12-78 [facility] ([facility]) Aspartate aminotransferase [Enzymatic activity/volume] in Serum or Plasma 18 U/L 15-37 [facility] ([facility] ) Albumin [Mass/volume] in Serum or Plasma 3.5 g/dL 3.4-5.0 [facility] ([facility]) A/G Ratio 0.90 CALC 1.00-1.90 [facility]) Glomerular filtration rate/1.73 sq M pre dicted among non-blacks [Volume Rate/Area] in Serum or Plasma by Creatinine-based formula (MDRD) 48 mL/min [facility] Proteinase 3 Ab [Units/volume] in Serum 7.4 g/dL 6.4-8.2 [facility] Glomerular filtration rate/1.73 sq M pre dicted among blacks [Volume Rate/Area] in Serum or Plasma by Creatinine-based formula (MDRD) 58 mL/min [facility]) <content>CHRONIC KIDNEY DISEASE STAGING PER NKF</content>
<content></content>
<content>STAGE I & II GFR >= 60 NORMAL TO MILDLY DECREASED</content>
<content>STAGE III GFR 30-59 MODERATELY DECREASED</content>
<content>STAGE IV GFR 15-29 SEVERELY DECREASED</content>
<content>STAGE V GFR <15 VERY LITTLE GFR LEFT</content>
<content>ESRD GFR <15 ON CARROT TIER</content>
<content></content> ID Date Data Source [id number] 04/23/2020 10:18:00 AM EST [facility] ([facility]) Name Value Range Interpretation Code Description Data Krupa rce(s) Supporting Document(s) Hemoglobin [Mass/volume] in Blood 13.9 g/dL 12.0-18.0 [facility] ([facility]) Erythrocytes [#/volume] in Blood by Automated count 4.86 x10*6/UL 4.2 0[facility] Leukocytes [#/volume] in Blood by Automated count 5.5 x10*3/UL 4.1-10 .9 [facility] MCV 83.7 fL 80.0-97.0 [facility] [facility]) MCH 28.6 pg 26.0-32.0 [facility] [facility]) Hematocrit [Volume Fraction] of Blood by Automated count 40.7 % 3 7.0-51.0 [facility] ([facility]) MCHC 34.1 g/dL 31.0-38.0 [facility] ([facility]) Erythrocyte distribution width [Ratio] by Automated count 13.0 % 11.6-13.7 [facility] ([facility]) Lymph % 33.1 % 10.0-58.5 [facility] ([facility] [facility]) MPV 8.2 FL 7.8-11.0 [facility] ([facility]) Platelets [#/volume] in Blood by Automated count 260 x10*3/UL 140-440 [facility] ([facility]) Lymph # 1.8 x10*3/UL 0.6-4.1 [facility] ([facility]) Mid % 7.4 % 1.7-9.3 [facility] ([place] [facility]) Neut % 59.5 % 37.0-92.0 [facility] [facility]) Mid # 0.4 x10*3/UL 0.1-0.6 [facility] ([facility]) Neut # 3.3 x10*3/UL 2.0-7.8 [facility] ([facility]) Procedure Social History No Information Vital Signs ID Date Data Source UNK Name Value Range Interpretation Code Description Data Source(s) Systolic blood pressure 130 mm[Hg] 130 mm[Hg] M EDENT ([facility]) Diastolic blood pressure 80 mm[Hg] 80 mm[Hg] [facility] ([facility]) Body height 64 [in_i] 64 [in_i] [facility] ([facility]) 5'4" Body weight 207.25 [lb_av] 207.25 [lb_av] MEDEN T ([facility]) Body mass index (BMI) [Ratio] 35.6 kg/m2 35.6 k g/m2 [facility] ([facility])
== END 2021-02-17 15:00 | disposition left against medical advice (07) ==
LOC: M ED 12:42
DX: Z53.20 Procedure and treatment not carried out because of patient's decision for unspecified reasons (principal)

== ENCOUNTER 2021-02-18 12:46 | Emergency (ER) | payer MEDICARE, OTHER ==
[~2021-02-18] VITALS: Ht 162.6 cm; Wt 103.2 kg
[~2021-02-18 12:46] MED LIST changes: +POTA-151; -POTA20TA6
[2021-02-18 13:38] LABS: BASO % 0.6 % (0.0-1.0); EOS # 0.1 10^3/uL (0.0-0.5); EOS % 1.2 % (0.0-3.0); HEMOGLOBIN 12.9 g/dl (12.0-15.5); LYMPH # 1.5 10^3/uL (1.5-5.0); LYMPH % 29.9 % (24.0-44.0); MEAN CORPUSCULAR HEMOGLOBIN 28.2 pg (27.0-33.0); MEAN CORPUSCULAR HGB CONC 32.3 g/dl (32.0-36.5); MEAN CORPUSCULAR VOLUME 87.5 fl (80.0-96.0); MONO # 0.4 10^3/uL (0.0-0.8); MONO % 8.2 % (2.0-8.0); NEUTROPHILS # 2.9 10^3/uL (1.5-8.5); NEUTROPHILS % 59.9 % (36.0-66.0); PLATELET COUNT, AUTOMATED 287 10^3/uL (150-450); RED BLOOD COUNT 4.57 10^6/uL (4.00-5.40); WHITE BLOOD COUNT 4.9 10^3/uL (4.0-10.0)
[2021-02-18] MEDS ORDERED: ISOVUE-370 76% 100ML VIAL As Ordered ONE (13:38)
[2021-02-18 14:01] LABS: ALBUMIN 3.1 GM/DL (3.2-5.2); ALT/SGPT 20 U/L (12-78); BILIRUBIN,DIRECT 0.1 MG/DL (0.0-0.2); BILIRUBIN,TOTAL 0.6 MG/DL (0.2-1.0); BLOOD UREA NITROGEN 14 MG/DL (7-18); CARBON DIOXIDE LEVEL 28 MEQ/L (21-32); CHLORIDE LEVEL 108 MEQ/L (98-107); CK-MB VALUE MASS < 1.0 NG/ML (<3.6); CPK CREATINE PHOSPHOKINASE 79 U/L (26-192); CREATININE FOR GFR 0.97 MG/DL (0.55-1.30); GLOMERULAR FILTRATION RATE 59.1 (>39); GLUCOSE, FASTING 88 MG/DL (70-100); LIPASE 98 U/L (73-393); MB/CK RELATIVE INDEX 1.27 (< OR =4); POTASSIUM SERUM 4.2 MEQ/L (3.5-5.1); SODIUM LEVEL 141 MEQ/L (136-145); TROPONIN I < 0.02 NG/ML (< 0.10)
[2021-02-18] MEDS ORDERED: MORPHINE 4 MG/ML 1ML VIAL/SYRINGE (J2270) IV ONE (14:50)
[2021-02-18 15:22] VITALS: O2SAT 96
[2021-02-18 15:46] VITALS: BP 151/67
== END 2021-02-18 15:57 | disposition home or self-care (01) ==
LOC: M ED 12:46
DX: R10.9 Unspecified abdominal pain (principal); R94.31 Abnormal electrocardiogram [ECG] [EKG]; F41.9 Anxiety disorder, unspecified; F33.9 Major depressive disorder, recurrent, unspecified; G47.33 Obstructive sleep apnea (adult) (pediatric); I87.2 Venous insufficiency (chronic) (peripheral); Z79.899 Other long term (current) drug therapy; Z88.5 Allergy status to narcotic agent; Z85.3 Personal history of malignant neoplasm of breast; Z86.69 Personal history of other diseases of the nervous system and sense organs; Z98.890 Other specified postprocedural states; Z90.49 Acquired absence of other specified parts of digestive tract
CPT/HCPCS: 36415; 70450; 71260; 72125; 72128; 72131; 74177; 80047; 80048; 80076; 82550; 82553; 83690; 84484; 85025; 93005; 93041; 96374; 99285; J2270; Q9967

== ENCOUNTER 2021-02-23 09:03 | Emergency (ER) | payer MEDICARE, OTHER ==
[~2021-02-23] VITALS: Ht 162.6 cm; Wt 96.1 kg
[2021-02-23 09:04] VITALS: BP 128/75
[2021-02-23] MEDS ORDERED: ACET1TAB55 PO (09:11)
[2021-02-23 13:55] LABS: BASO % 0.6 % (0.0-1.0); EOS # 0.1 10^3/uL (0.0-0.5); EOS % 0.7 % (0.0-3.0); HEMATOCRIT 41.9 % (36.0-47.0); HEMOGLOBIN 13.6 g/dl (12.0-15.5); LYMPH # 1.7 10^3/uL (1.5-5.0); LYMPH % 24.6 % (24.0-44.0); MEAN CORPUSCULAR HEMOGLOBIN 28.6 pg (27.0-33.0); MEAN CORPUSCULAR HGB CONC 32.5 g/dl (32.0-36.5); MONO # 0.4 10^3/uL (0.0-0.8); MONO % 6.5 % (2.0-8.0); NEUTROPHILS # 4.5 10^3/uL (1.5-8.5); PLATELET COUNT, AUTOMATED 305 10^3/uL (150-450); RED BLOOD COUNT 4.76 10^6/uL (4.00-5.40); WHITE BLOOD COUNT 6.8 10^3/uL (4.0-10.0)
[2021-02-23 14:17] LABS: ALBUMIN 3.4 GM/DL (3.2-5.2); ALT/SGPT 20 U/L (12-78); BILIRUBIN,DIRECT 0.2 MG/DL (0.0-0.2); BILIRUBIN,TOTAL 0.6 MG/DL (0.2-1.0); BLOOD UREA NITROGEN 13 MG/DL (7-18); CARBON DIOXIDE LEVEL 27 MEQ/L (21-32); CHLORIDE LEVEL 104 MEQ/L (98-107); CK-MB VALUE MASS < 1.0 NG/ML (<3.6); CPK CREATINE PHOSPHOKINASE 78 U/L (26-192); CREATININE FOR GFR 1.18 MG/DL (0.55-1.30); GLOMERULAR FILTRATION RATE 47.2 (>39); GLUCOSE, FASTING 97 MG/DL (70-100); MB/CK RELATIVE INDEX 1.28 (< OR =4); POTASSIUM SERUM 4.1 MEQ/L (3.5-5.1); SODIUM LEVEL 138 MEQ/L (136-145); TROPONIN I < 0.02 NG/ML (< 0.10)
== END 2021-02-23 14:33 | disposition left against medical advice (07) ==
LOC: M ED 09:03
DX: M54.50 Low back pain, unspecified (principal); W01.0XXD Fall on same level from slipping, tripping and stumbling without subsequent striking against object, subsequent encounter; Y92.009 Unspecified place in unspecified non-institutional (private) residence as the place of occurrence of the external cause; Y93.9 Activity, unspecified; Z53.20 Procedure and treatment not carried out because of patient's decision for unspecified reasons; Z98.84 Bariatric surgery status; Z98.1 Arthrodesis status; Z79.899 Other long term (current) drug therapy

== ENCOUNTER 2021-03-11 13:15 | Inpatient (IN) | payer MEDICARE, OTHER ==
[~2021-03-11] VITALS: Ht 165.1 cm; Wt 93.0 kg
[~2021-03-11 13:15] MED LIST changes: +ACET1TAB55 PO; -POTA-151; +POTA20TA6
[2021-03-11] MEDS ORDERED: NS 1,000 ML IV ONE (13:35)
--- OUTSIDE RECORDS SUMMARY | 2021-03-11 13:50 | CCD ---
Author Author [facility] Organization [facility] Address Unknown Phone Unavailable Care Team Providers Care Spouting Installer Name Role Phone Андрей Urbina MD Unavailable [...] Unavailable Андрей Urbina MD Unavailable Unavailable Андрей rUbina MD Unavailable Unavailable Андрей Urbina MD Unavailable [...] Unavailable Unavailable Андрей Urbina MD Unavailable Unavailable CarlitosАндрей MD Unavailable Unavailable CarlitosАндрей MD Unavailable Unavailable TucsonАндрей MD Unavailable Unavailable Carlitos, Андрей Mendoza MD Unavailable Unavailable Carlitos, Андрей Mendoza MD Unavailable Unavailable [place], Андрей Mendoza MD Unavailable Unavailable CarlitosАндрей MD Unavailable Unavailable TucsonАндрей MD Unavailable Unavailable TucsonАндрей MD Unavailable Unavailable CarlitosАндрей MD Unavailable Unavailable CarlitosАндрей MD Unavailable Unavailable CarlitosАндрей MD Unavailable Unavailable CarlitosАндрей MD Unavailable Unavailable [place]sonАндрей MD Unavailable Unavailable [place]sonАндрей MD Unavailable Unavailable CarlitosАндрей MD Unavailable Unavailable [place]Андрей MD Unavailable Unavailable [place]Андрей MD Unavailable Unavailable CarlitosАндрей MD Unavailable Unavailable CarlitosАндрей MD Unavailable Unavailable TucsonАндрей MD Unavailable Unavailable TucsonАндрей MD Unavailable Unavailable CarlitosАндрей MD Unavailable Unavailable CarlitosАндрей MD Unavailable Unavailable CarlitosАндрей MD Unavailable Unavailable CarlitosАндрей MD Unavailable Unavailable [place]Андрей MD Unavailable Unavailable [place]sonАндрей MD Unavailable Unavailable CarlitosАндрей MD Unavailable Unavailable TucsonАндрей MD Unavailable Unavailable [place]sonАндрей MD Unavailable Unavailable [place]Андрей MD Unavailable Unavailable [place]Андрей MD Unavailable Unavailable CarlitosАндрей MD Unavailable Unavailable [place]Андрей MD Unavailable Unavailable CarlitosАндрей MD Unavailable Unavailable [place]Андрей MD Unavailable Unavailable CarlitosАндрей MD Unavailable Unavailable CarlitosАндрей MD Unavailable Unavailable [place]Андрей MD Unavailable Unavailable [place]Андрей MD Unavailable Unavailable CarlitosАндрей MD Unavailable Unavailable CarlitosАндрей MD Unavailable Unavailable TucsonАндрей MD Unavailable Unavailable [place]sonАндрей MD Unavailable Unavailable [place]Андрей MD Unavailable Unavailable CarlitosАндрей MD Unavailable Unavailable CarlitosАндрей MD Unavailable Unavailable [place]Андрей MD Unavailable Unavailable CarlitosАндрей MD Unavailable Unavailable CarlitosАндрей MD Unavailable Unavailable CarlitosАндрей MD Unavailable Unavailable PotEbony harkins GUARD ENTRANCE REGISTRAR Unavailable Unavailable PotEbony harkins GUARD ENTRANCE REGISTRAR Unavailable Unavailable Potter M Abimbola GUARD ENTRANCE REGISTRAR Unavailable Unavailable Potter, M Abimbola GUARD ENTRANCE REGISTRAR Unavailable Unavailable Potter, M Abimbola GUARD ENTRANCE REGISTRAR Unavailable Unavailable Potter, M Abimbola GUARD ENTRANCE REGISTRAR Unavailable Unavailable Potter, M Abimbola GUARD ENTRANCE REGISTRAR Unavailable Unavailable Potter, M Abimbola GUARD ENTRANCE REGISTRAR Unavailable Unavailable Potter, M Abimbola GUARD ENTRANCE REGISTRAR Unavailable Unavailable Potter, M Abimbola GUARD ENTRANCE REGISTRAR Unavailable Unavailable Potter, M Abimbola GUARD ENTRANCE REGISTRAR Unavailable Unavailable Potter, M Abimbola GUARD ENTRANCE REGISTRAR Unavailable Unavailable Potter, M Abimbola GUARD ENTRANCE REGISTRAR Unavailable Unavailable Potter, M Abimbola GUARD ENTRANCE REGISTRAR Unavailable Unavailable Potter, M Abimbola GUARD ENTRANCE REGISTRAR Unavailable Unavailable Potter, M Abimbola GUARD ENTRANCE REGISTRAR Unavailable Unavailable Potter, M Abimbola GUARD ENTRANCE REGISTRAR Unavailable Unavailable Potter, M Abimbola GUARD ENTRANCE REGISTRAR Unavailable Unavailable Potter, M Abimbola GUARD ENTRANCE REGISTRAR Unavailable Unavailable Potter, M Abimbola GUARD ENTRANCE REGISTRAR Unavailable Unavailable Potter, M Abimbola GUARD ENTRANCE REGISTRAR Unavailable Unavailable Potter, M Abimbola GUARD ENTRANCE REGISTRAR Unavailable Unavailable Potter, M Abimbola GUARD ENTRANCE REGISTRAR Unavailable Unavailable Potter, M Abimbola GUARD ENTRANCE REGISTRAR Unavailable Unavailable Potter, M Abimbola GUARD ENTRANCE REGISTRAR Unavailable Unavailable Potter, M Abimbola GUARD ENTRANCE REGISTRAR Unavailable Unavailable Potter, M Abimbola GUARD ENTRANCE REGISTRAR Unavailable Unavailable Potter, M Abimbola GUARD ENTRANCE REGISTRAR Unavailable Unavailable Potter, M Abimbola GUARD ENTRANCE REGISTRAR Unavailable Unavailable Potter, M Abimbola GUARD ENTRANCE REGISTRAR Unavailable Unavailable Potter, M Abimbola GUARD ENTRANCE REGISTRAR Unavailable Unavailable Potter, M Abimbola GUARD ENTRANCE REGISTRAR Unavailable Unavailable Potter, M Abimbola GUARD ENTRANCE REGISTRAR Unavailable Unavailable Potter, M Abimbola GUARD ENTRANCE REGISTRAR Unavailable Unavailable Potter, M Abimbola GUARD ENTRANCE REGISTRAR Unavailable Unavailable Potter, M Abimbola GUARD ENTRANCE REGISTRAR Unavailable Unavailable Potter, M Abimbola GUARD ENTRANCE REGISTRAR Unavailable Unavailable Potter, M Abimbola GUARD ENTRANCE REGISTRAR Unavailable Unavailable Potter, M Abimbola GUARD ENTRANCE REGISTRAR Unavailable Unavailable Potter, M Abimbola GUARD ENTRANCE REGISTRAR Unavailable Unavailable Potter, M Abimbola GUARD ENTRANCE REGISTRAR Unavailable Unavailable Potter, M Abimbola GUARD ENTRANCE REGISTRAR Unavailable Unavailable Potter, M Abimbola GUARD ENTRANCE REGISTRAR Unavailable Unavailable Potter, M Abimbola GUARD ENTRANCE REGISTRAR Unavailable Unavailable Potter, M Abimbola GUARD ENTRANCE REGISTRAR Unavailable Unavailable Potter, M Abimbola GUARD ENTRANCE REGISTRAR Unavailable Unavailable Potter, M Abimbola GUARD ENTRANCE REGISTRAR Unavailable Unavailable Potter, M Abimbola GUARD ENTRANCE REGISTRAR Unavailable Unavailable Potter, M Abimbola GUARD ENTRANCE REGISTRAR Unavailable Unavailable Potter, M Abimbola GUARD ENTRANCE REGISTRAR Unavailable Unavailable Potter, M Abimbola GUARD ENTRANCE REGISTRAR Unavailable Unavailable Potter, M Abimbola GUARD ENTRANCE REGISTRAR Unavailable Unavailable Potter, M Abimbola GUARD ENTRANCE REGISTRAR Unavailable Unavailable Potter, M Abimbola GUARD ENTRANCE REGISTRAR Unavailable Unavailable Ebony Karimith GUARD ENTRANCE REGISTRAR Unavailable Unavailable Ebony Karimidith GUARD ENTRANCE REGISTRAR Unavailable Unavailable Ebony Karimidith GUARD ENTRANCE REGISTRAR Unavailable Unavailable Ebony Karimi GUARD ENTRANCE REGISTRAR Unavailable Unavailable Re-disclosure Warning The records that [...] is protected by Article 27-F of the [facility] Public Health law. If you continue you may have access to information: Regarding HIV / AIDS; Provided by facilities licensed or operated by the [facility] Office of Mental Health; or Provided by the [facility] Office for People With Developmental Disabilities. If such information is present, then the following [facility] mandated warning applies: This information has [...] law may result in a fine or assisted sentence or both. A general authorization for the release of medical or other information is NOT sufficient authorization for further disc losure. Family History Family Member Name Family Member Gender Family Member Status Date o f Status Description Data Source(s) Unknown Female Problem [facility] ([facility]) Unknown Female Problem [facility] ([facility]) Unknown Female Problem [facility] ([facility]) Unknown Female Problem [facility] ([facility]) Unknown Unknown Problem [facility] ([facility]) Encounters Encounter Providers Location Date Indications Data Source(s ) Outpatient 02/25/2021 09:37:25 AM EST [facility] ([facility]) Outpatient Attender: Abimbola MónicaHawkins 02/09/2021 01:45:0 0 PM EDT Xray [facility] Xray Outpatient Attender: Reji Medellin 0 04/23/2020 08:40:00 AM EST [facility] ([facility] ) Immunizations Vaccine Date Status Description Data Source(s) COVID-19 VACCINE, MRNA-1273, LNP-S (MODERNA)/PF 07/13/2020 1 2:00:00 AM EDT completed [facility] COVID-19 VACCINE Moderna 07/13/2020 12:00:00 AM EDT completed [facility] Vaccine Series Complete: YESThis Data wa s Submitted to [facility] Via [employer]. COVID-19 VACCINE, MRNA-1273, LNP-S (MODERNA)/PF 06/14/2020 1 2:00:00 AM EST completed [facility] COVID-19 VACCINE Moderna 06/14/2020 12:00:00 AM EST completed [facility] Vaccine Series Complete: NOThis Data was Submitted to [facility] [employer]. Medications Medication Brand Name Start Date Product Form Dose Route Admi nistrative Instructions Pharmacy Instructions Status Indications Reaction Description Data Source(s) 800 mg 02/25/2021 12:00:00 AM EST tablet 90 TAKE ONE TABLET BY MOUTH THREE TIMES A DAY WITH FOOD TAKE ONE TABLET BY MOUTH THREE TIMES A DAY WITH FOOD S OLD: 02/25/2021 [facility] Furosemide 40 MG Oral Tablet Furosemide 04/23/2020 12:00:00 AM EST active [facility] ([facility]) Ondansetron 4 MG Oral Tablet [Zofran] Zofran 11/14/2019 12:00:00 AM EDT ORAL completed [facility] ([facility]) Insurance Providers Payer name Policy type / Coverage type Policy ID Covered alliance party ID Covered alliance party's relationship to landon Policy Landon Plan Information MEDICARE [id number] SP [id number] Medicare C [id number] SELF [id number] D MEDICARE [id number] SP [id number] D MEDICARE M [id number] S [id number] D [place] Primary [id number] Self [facility] F [id number] SELF [id number] [employer] [facility] Part B [id number] Self SELF PAY OTHER COMMERCIAL [id number] SP [id number] MEDICARE [id number] SP [id number] Medicare Natl Govt Servic Medicare Primary [id number] Self 0 [id number] MEDICARE C [id number] S [id number] D [employer] Commercial [id number] Self [id number] Medicare Natl Gov't Servi Medicare Primary [id number] Self [id number] Medicare Natl Govt Servic Medicare Primary [id number] Self [id number] Medicare Natl Govt Servic Medicare Primary [id number] Self 0 [id number] MEDICARE -O/P [id number] 18 [id number] COMMERCIAL -O/P [id number] 18 [id number] MEDICARE PART A -O/P [id number] 18 [id number] Medicare Dme Supplies Medigap Part B [id number] Self [employer] [facility] Part B [id number] Self Medicare Natl Govt Servic Medicare Primary [id number] Self Medicare Natl Gov't Servi Medicare Primary [id number] Self [facility] Commercial [id number] Self [place] [employer] [place] [id number] S [id number] MEDICARE PART A M [id number] S [id number] [place] [employer] O [id number] S [id number] D [facility] RESOURCES INC [id number] SP [id number] MEDICARE C [id number] S [id number] [facility] [facility] [place] [id number] S [id number] [facility] [id number] Medicare Natl Govt Servic Medicare Primary [id number] Self [id number] [facility] Medierwinna Part B [id number] Self [id number] Medicare Natl Govt Servic Medicare Primary [id number] Self 1 [id number] Medicare Natl Govt Servic Medicare Primary [id number] Self 1 [id number] Medicare Natl [facility] Medicare Primary [id number] Self 1 [id number] Problems, Conditions, and Diagnoses Code Display Name Description Problem Type Effective Dates Data Source(s) M25.571 Pain in right ankle and joints of right foot M25.571 - Pain in right ankle and joints of right foot Diagnosis 02/09/2021 01:45:00 PM EDT [facility] Surgeries/Procedures No Information Results ID Date Data Source [id number] 02/25/2021 10:21:00 AM EST [facility]) LUMBAR SPINE CLINICAL STATEMENT: Low loren k pain TECHNIQUE: AP, lateral, and oblique views of the lumbar spine. COMPARISON: None FINDINGS: There is mild depression of the superior endplate of the L3 vertebral body of indeterminate chronicity. Vertebral body heights are otherwise maintained.Alignment is unremarkable.There are degenerative disc changes at L5-S1 and L4-L5. In association, there are posterior facet sclerotic changes at these levels. IMPRESSION: Mild depression of the superior endplate of the L3 vertebral body of indeterminate chronicity. Degenerative changes of the lower lumbar spine. Professional interpretation performed by [facility] Medical Imaging at [facility] . Name Value Range Interpretation Code Description Data Krupa rce(s) Supporting Document(s) ID Date Data Source [id number] 02/09/2021 02:23:00 PM EDT [address] [address] Patient Name: Charley Melendez Exam Date: 02/09/21 : 1940 Ordering Doctor: Abimbola Karimi Attending Doctor: Abimbola Karimi CC: EXAM: ANKLE, right side, four views. INDICATION: Ankle pain FINDINGS: There is no fracture or dislocation. The ankle mortise is intact. Bone density appears normal, and there is no significant degenerative change. CONCLUSION: Normal ankle. Professional interpretation performed by [facility] Medical Imaging at [facility] . End of diagnostic report: [id number] Signed: Satish Kim MD 02/09/21 1431 Interpreted by: Nkechi KimoTranscribed by: Satish Kim Name Value Range Interpretation Code Description Data Krupa rce(s) Supporting Document(s) ID Date Data Source [id number] 04/23/2020 10:18:00 AM EST [facility] ([facility]) Name Value Range Interpretation Code Description Data Krupa rce(s) Supporting Document(s) Thyrotropin [Units/volume] in Serum or Plasma by Detec tion limit <= 0.05 mIU/L 3.46 uIU/mL 0.36-3.74 [facility] ([facility] ) ID Date Data Source [id number] 04/23/2020 10:18:00 AM EST [facility] ([facility]) Name Value Range Interpretation Code Description Data Krupa rce(s) Supporting Document(s) Cholesterol [Mass/volume] in Serum or Plasma 246 mg/dL 131-200 [facility] ([facility]) Cholesterol in HDL [Mass/volume] in Serum or Plasma 48 mg/dL 35-60 [facility] ([facility]) Cholesterol in LDL [Mass/volume] in Serum or Plasma by calcu lation 162 CALC 50-159 [facility] ([facility]) Triglyceride [Mass/volume] in Serum or Plasma 180 mg/dL 30-150 [facility] ([facility]) ID Date Data Source [id number] 04/23/2020 10:18:00 AM EST [facility] ([facility]) Name Value Range Interpretation Code Description Data Krupa rce(s) Supporting Document(s) Glucose [Mass/volume] in Serum or Plasma 95 mg/dL 74-99 [facility] ([facility]) 100-125 mg/dL PRE-DIABETES/FASTING >126 mg/dL DIABETES/FASTING Urea nitrogen [Mass/volume] in Serum or Plasma 19 mg/dL 7-18 [facility] ([facility]) Creatinine 1.1 mg/dL 0.6-1.3 [facility] ([facility]) Sodium [Moles/volume] in Serum or Plasma 140 meq/L 136-145 [facility] ([facility]) Carbon dioxide, total [Moles/volume] in Serum or Plasma 33 meq/L 21 -32 [facility] ([facility]) Chloride [Moles/volume] in Serum or Plasma 102 meq/L 98-107 [facility] ([facility]) Potassium [Moles/volume] in Serum or Plasma 3.8 meq/L 3.5-5.1 [facility] ([facility]) Calcium [Mass/volume] in Serum or Plasma 8.5 mg/dL 8.5-10.1 [facility] ([facility]) Total Bilirubin 0.7 mg/dL 0.2-1.0 [facility] ([facility]) Alkaline phosphatase isoenzyme [Units/volume] in Serum or Pl asma 84 mg/dL 46-116 [facility] ([facility]) Alanine aminotransferase [Enzymatic activity/volume] in Seru m or Plasma 22 U/L 12-78 [facility] ([facility]) Aspartate aminotransferase [Enzymatic activity/volume] in Serum or Plasma 18 U/L 15-37 [facility] ([facility] ) Albumin [Mass/volume] in Serum or Plasma 3.5 g/dL 3.4-5.0 [facility] ([facility]) A/G Ratio 0.90 CALC 1.00-1.90 [facility]) Glomerular filtration rate/1.73 sq M pre dicted among non-blacks [Volume Rate/Area] in Serum or Plasma by Creatinine-based formula (MDRD) 48 mL/min [facility] ([facility]) Proteinase 3 Ab [Units/volume] in Serum 7.4 g/dL 6.4-8.2 [facility] Glomerular filtration rate/1.73 sq M pre dicted among blacks [Volume Rate/Area] in Serum or Plasma by Creatinine-based formula (MDRD) 58 mL/min [facility] <content>CHRONIC KIDNEY DISEASE STAGING PER NKF</content>
<content></content>
<content>STAGE I & II GFR >= 60 NORMAL TO MILDLY DECREASED</content>
<content>STAGE III GFR 30-59 MODERATELY DECREASED</content>
<content>STAGE IV GFR 15-29 SEVERELY DECREASED</content>
<content>STAGE V GFR <15 VERY LITTLE GFR LEFT</content>
<content>ESRD GFR <15 ON HAND PICKER</content>
<content></content> ID Date Data Source [id number] 04/23/2020 10:18:00 AM EST [facility] ([facility]) Name Value Range Interpretation Code Description Data Krupa rce(s) Supporting Document(s) Hemoglobin [Mass/volume] in Blood 13.9 g/dL 12.0-18.0 [facility] ([facility]) Erythrocytes [#/volume] in Blood by Automated count 4.86 x10*6/UL 4.2 0-6.30 [facility] ([facility]) Leukocytes [#/volume] in Blood by Automated count 5.5 x10*3/UL 4.1-10 .9 [facility] ([facility]) MCV 83.7 fL 80.0-97.0 [facility] MCH 28.6 pg 26.0-32.0 [facility] [facility]) Hematocrit [Volume Fraction] of Blood by Automated count 40.7 % 3 7.0-51.0 [facility]) MCHC 34.1 g/dL 31.0-38.0 [facility] [facility]) Erythrocyte distribution width [Ratio] by Automated count 13.0 % 11.6-13.7 [facility] ([facility]) Lymph % 33.1 % 10.0-58.5 [facility] [facility]) MPV 8.2 FL 7.8-11.0 [facility] ([facility]) Platelets [#/volume] in Blood by Automated count 260 x10*3/UL 140-440 [facility] ([facility]) Lymph # 1.8 x10*3/UL 0.6-4.1 [facility] ([facility]) Mid % 7.4 % 1.7-9.3 [facility] [facility]) Neut % 59.5 % 37.0-92.0 [facility] ([facility]) Mid # 0.4 x10*3/UL 0.1-0.6 [facility] ([facility]) Neut # 3.3 x10*3/UL 2.0-7.8 [facility] ([facility]) Procedure Social History No Information Vital Signs ID Date Data Source UNK Name Value Range Interpretation Code Description Data Source(s) Systolic blood pressure 130 mm[Hg] 130 mm[Hg] [facility] Diastolic blood pressure 80 mm[Hg] 80 mm[Hg] [facility]) Body height 64 [in_i] 64 [in_i] [facility] ([facility]) 5'4" Body weight 207.25 [lb_av] 207.25 [lb_av] [facility] T ([facility]) Body mass index (BMI) [Ratio] 35.6 kg/m2 35.6 k g/m2 [facility] ([facility])
[2021-03-11 13:55] LABS: BASO # 0.1 10^3/uL (0.0-0.2); BASO % 0.8 % (0.0-1.0); EOS # 0.1 10^3/uL (0.0-0.5); EOS % 1.4 % (0.0-3.0); HEMATOCRIT 40.8 % (36.0-47.0); HEMOGLOBIN 13.9 g/dl (12.0-15.5); LYMPH # 1.5 10^3/uL (1.5-5.0); LYMPH % 20.9 % (24.0-44.0); MEAN CORPUSCULAR HEMOGLOBIN 29.1 pg (27.0-33.0); MEAN CORPUSCULAR HGB CONC 34.1 g/dl (32.0-36.5); MEAN CORPUSCULAR VOLUME 85.5 fl (80.0-96.0); MONO # 0.6 10^3/uL (0.0-0.8); NEUTROPHILS # 5.1 10^3/uL (1.5-8.5); NEUTROPHILS % 68.6 % (36.0-66.0); PLATELET COUNT, AUTOMATED 230 10^3/uL (150-450); RED BLOOD COUNT 4.77 10^6/uL (4.00-5.40); WHITE BLOOD COUNT 7.4 10^3/uL (4.0-10.0)
--- NOTE | 2021-03-11 14:14 | REP ---
INDICATION: fall COMPARISON: 02/23/2021 TECHNIQUE: Axial noncontrast images from the skull base to the thoracic inlet with coronal reformations. This CT examination was performed using the following dose reduction techniques: Automated exposure control, adjustment of mA and/or kv according to the patient's size, and use of iterative reconstruction technique. FINDINGS: Atrophy with periventricular leukomalacia and microvascular ischemic changes are appreciated. The ventricles and sulci are symmetric. White-white differentiation is maintained. There is no evidence for acute intracranial hemorrhage, mass/mass effect, pathology or infarction. No extra-axial fluid collection. Calvarium is intact. Paranasal sinuses and mastoid air cells are clear. IMPRESSION: Atrophy and microvascular ischemic changes. No acute intracranial hemorrhage, infarction, or mass/mass effect. <Electronically signed by Krzysztof Hayes > 03/11/21 2930
--- NOTE | 2021-03-11 14:16 | REP ---
INDICATION: fall COMPARISON: 02/23/2021 TECHNIQUE: Axial noncontrast images from the skull base to the thoracic inlet with coronal and sagittal re-formations This CT examination was performed using the following dose reduction techniques: Automated exposure control, adjustment of mA and/or kv according to the patient's size, and use of iterative reconstruction technique. FINDINGS: Osteopenia and moderate age-related degenerative changes are noted. Alignment is maintained. No acute fracture/compression injury or subluxation. Spinal canal is patent. Posterior elements and spinous processes are intact. IMPRESSION: Osteopenia and degenerative spondylosis. No evidence for acute pathology or trauma/injury. <Electronically signed by Krzysztof Hayes > 03/11/21 4582
[2021-03-11 14:30] LABS: ALBUMIN 3.4 GM/DL (3.2-5.2); BILIRUBIN,DIRECT 0.2 MG/DL (0.0-0.2); BILIRUBIN,TOTAL 0.8 MG/DL (0.2-1.0); CALCIUM LEVEL 9.5 MG/DL (8.8-10.2); CREATININE FOR GFR 1.9 MG/DL (0.55-1.30); GLOMERULAR FILTRATION RATE 27.2 (>39); POTASSIUM SERUM 3.5 MEQ/L (3.5-5.1); THYROID STIMULATING HORMONE 3.15 uIU/ML (0.358-3.740); TOTAL PROTEIN 7.1 GM/DL (6.4-8.2)
--- NOTE | 2021-03-11 14:46 | REP ---
INDICATION: malaise COMPARISON: 10/30/2019 TECHNIQUE: Portable AP view of the chest FINDINGS: The mediastinum and cardiac silhouette are stable and within normal limits for portable technique. The lung hardin are clear without acute consolidation, effusion, or pneumothorax. Skeletal structures are intact. IMPRESSION: No acute cardiopulmonary process appreciated. <Electronically signed by Krzysztof Hayes > 03/11/21 [id number]
--- NOTE | 2021-03-11 16:25 | REP ---
INDICATION: wide mediastinum, dehydration COMPARISON: 02/18/2021 TECHNIQUE: Axial noncontrast images from the thoracic inlet to the upper abdomen with coronal and sagittal reformations. This CT examination was performed using the following dose reduction techniques: Automated exposure control, adjustment of mA and/or kv according to the patient's size, and use of iterative reconstruction technique. FINDINGS: Bilateral lung hardin are clear. No acute consolidation, obvious suspicious nodule, or mass. No effusion. No pneumothorax. Tracheobronchial tree is patent. Mediastinum demonstrates stable atherosclerotic changes to the thoracic aorta without aneurysm. No cardiomegaly or pericardial effusion. No adenopathy. Visualized portions of the thyroid gland are normal. Surrounding musculoskeletal structures are intact. Limited upper abdomen demonstrates normal bilateral adrenal glands and evidence for prior cholecystectomy. IMPRESSION: No acute mediastinal or pleuroparenchymal process. <Electronically signed by Krzysztof Hayes > 03/11/21 4032
--- NOTE | 2021-03-11 16:28 | REP ---
INDICATION: n/v COMPARISON: 02/18/2021 TECHNIQUE: Axial noncontrast images from the lung bases to the pubic symphysis with coronal and sagittal reformations. This CT examination was performed using the following dose reduction techniques: Automated exposure control, adjustment of mA and/or kv according to the patient's size, and use of iterative reconstruction technique. FINDINGS: Lung bases are clear. Visualized heart and pericardium normal. Liver, spleen, pancreas, bilateral adrenal glands and kidneys are stable and essentially normal. The enteric system is without obstruction or acute inflammatory process. Normal terminal ileum is identified in the right lower quadrant. Diffuse colonic and sigmoid diverticulosis noted without acute diverticulitis. Pelvis demonstrates normal bladder prior hysterectomy. No ascites. No free air. No adenopathy. No focal inflammatory stranding. Abdominal aorta without aneurysm. Musculoskeletal demonstrate osteopenia and degenerative changes along with prior laminectomy from L2-L5. IMPRESSION: No acute abdominopelvic pathology appreciated. <Electronically signed by Krzysztof Hayes > 03/11/21 [id number]
[2021-03-11] MEDS ORDERED: NS 500 ML IV ONE (16:55)
--- OUTSIDE RECORDS SUMMARY | 2021-03-11 19:25 | CCD ---
Author Author [facility] Organization [facility] Address Unknown Phone Unavailable Care Team Providers Care Terrazzo Mechanic Name Role Phone Андрей Urbina MD Unavailable [...] MD Unavailable Unavailable CarlitosАндрей MD Unavailable Unavailable [place]ей MD Unavailable Unavailable Carlitos, Андрей Mendoza MD Unavailable Unavailable Carlitos, Андрей Mendoza MD Unavailable Unavailable [place], Андрей Mendoza MD Unavailable Unavailable CarlitosАндрей MD Unavailable Unavailable [place] [facility]ей MD Unavailable Unavailable [place] [facility]н[place]ей MD Unavailable Unavailable CarlitosАндрей MD Unavailable Unavailable CarlitosАндрей MD Unavailable Unavailable CarlitosАндрей MD Unavailable Unavailable CarlitosАндрей MD Unavailable Unavailable [place] MD Unavailable Unavailable [place]ей MD Unavailable Unavailable CarlitosАндрей MD Unavailable Unavailable [place]Ан[place]ей MD Unavailable Unavailable [place]ей MD Unavailable Unavailable CarlitosАндрей MD Unavailable Unavailable CarlitosАндрей MD Unavailable Unavailable [place]Ан[place]ей MD Unavailable Unavailable [place]Андрей MD Unavailable Unavailable CarlitosАндрей MD Unavailable Unavailable CarlitosАндрей MD Unavailable Unavailable CarlitosАндрей MD Unavailable Unavailable CarlitosАндрей MD Unavailable Unavailable [place] [facility]ей MD Unavailable Unavailable [place] [facility]Ан[place]рей MD Unavailable Unavailable CarlitosАндрей MD Unavailable Unavailable [place]Андрей MD Unavailable Unavailable [place]Андрей MD Unavailable Unavailable [place]Ан[place]ей MD Unavailable Unavailable [place]Ан[place]ей MD Unavailable Unavailable CarlitosАндрей MD Unavailable Unavailable [place]н[place]ей MD Unavailable Unavailable CarlitosАндрей MD Unavailable Unavailable [place] [facility]н[place]ей MD Unavailable Unavailable CarlitosАндрей MD Unavailable Unavailable CarlitosАндрей MD Unavailable Unavailable [place] [facility]н[place]ей MD Unavailable Unavailable [place]Ан[place]ей MD Unavailable Unavailable CarlitosАндрей MD Unavailable Unavailable CarlitosАндрей MD Unavailable Unavailable [place]Ан[place]ей MD Unavailable Unavailable [place]Ан[place]ей MD Unavailable Unavailable [place]Ан[place]ей MD Unavailable Unavailable CarlitosАндрей MD Unavailable Unavailable CarlitosАндрей MD Unavailable Unavailable [place] [facility]н[place]ей MD Unavailable Unavailable CarlitosАндрей MD Unavailable Unavailable CarlitosАндрей MD Unavailable Unavailable CarlitosАндрей MD Unavailable Unavailable PotEbony harkins CHOPPED STRAND OPERATOR Unavailable Unavailable PotEbony harkins CHOPPED STRAND OPERATOR Unavailable Unavailable Potter M Abimbola CHOPPED STRAND OPERATOR Unavailable Unavailable Potter, M Abimbola CHOPPED STRAND OPERATOR Unavailable Unavailable Potter, M Abimbola CHOPPED STRAND OPERATOR Unavailable Unavailable Potter, M Abimbola CHOPPED STRAND OPERATOR Unavailable Unavailable Potter, M Abimbola CHOPPED STRAND OPERATOR Unavailable Unavailable Potter, M Abimbola CHOPPED STRAND OPERATOR Unavailable Unavailable Potter, M Abimbola CHOPPED STRAND OPERATOR Unavailable Unavailable Potter, M Abimbola CHOPPED STRAND OPERATOR Unavailable Unavailable Potter, M Abimbola CHOPPED STRAND OPERATOR Unavailable Unavailable Potter, M Abimbola CHOPPED STRAND OPERATOR Unavailable Unavailable Potter, M Abimbola CHOPPED STRAND OPERATOR Unavailable Unavailable Potter, M Abimbola CHOPPED STRAND OPERATOR Unavailable Unavailable Potter, M Abimbola CHOPPED STRAND OPERATOR Unavailable Unavailable Potter, M Abimbola CHOPPED STRAND OPERATOR Unavailable Unavailable Potter, M Abimbola CHOPPED STRAND OPERATOR Unavailable Unavailable Potter, M Abimbola CHOPPED STRAND OPERATOR Unavailable Unavailable Potter, M Abimbola CHOPPED STRAND OPERATOR Unavailable Unavailable Potter, M Abimbola CHOPPED STRAND OPERATOR Unavailable Unavailable Potter, M Abimbola CHOPPED STRAND OPERATOR Unavailable Unavailable Potter, M Abimbola CHOPPED STRAND OPERATOR Unavailable Unavailable Potter, M Abimbola CHOPPED STRAND OPERATOR Unavailable Unavailable Potter, M Abimbola CHOPPED STRAND OPERATOR Unavailable Unavailable Potter, M Abimbola CHOPPED STRAND OPERATOR Unavailable Unavailable Potter, M Abimbola CHOPPED STRAND OPERATOR Unavailable Unavailable Potter, M Abimbola CHOPPED STRAND OPERATOR Unavailable Unavailable Potter, M Abimbola CHOPPED STRAND OPERATOR Unavailable Unavailable Potter, M Abimbola CHOPPED STRAND OPERATOR Unavailable Unavailable Potter, M Abimbola CHOPPED STRAND OPERATOR Unavailable Unavailable Potter, M Abimbola CHOPPED STRAND OPERATOR Unavailable Unavailable Potter, M Abimbola CHOPPED STRAND OPERATOR Unavailable Unavailable Potter, M Abimbola CHOPPED STRAND OPERATOR Unavailable Unavailable Potter, M Abimbola CHOPPED STRAND OPERATOR Unavailable Unavailable Potter, M Abimbola CHOPPED STRAND OPERATOR Unavailable Unavailable Potter, M Abimbola CHOPPED STRAND OPERATOR Unavailable Unavailable Potter, M Abimbola CHOPPED STRAND OPERATOR Unavailable Unavailable Potter, M Abimbola CHOPPED STRAND OPERATOR Unavailable Unavailable Potter, M Abimbola CHOPPED STRAND OPERATOR Unavailable Unavailable Potter, M Abimbola CHOPPED STRAND OPERATOR Unavailable Unavailable Potter, M Abimbola CHOPPED STRAND OPERATOR Unavailable Unavailable Potter, M Abimbola CHOPPED STRAND OPERATOR Unavailable Unavailable Potter, M Abimbola CHOPPED STRAND OPERATOR Unavailable Unavailable Potter, M Abimbola CHOPPED STRAND OPERATOR Unavailable Unavailable Potter, M Abimbola CHOPPED STRAND OPERATOR Unavailable Unavailable Potter, M Abimbola CHOPPED STRAND OPERATOR Unavailable Unavailable Potter, M Abimbola CHOPPED STRAND OPERATOR Unavailable Unavailable Potter, M Abimbola CHOPPED STRAND OPERATOR Unavailable Unavailable Potter, M Abimbola CHOPPED STRAND OPERATOR Unavailable Unavailable Potter, M Abimbola CHOPPED STRAND OPERATOR Unavailable Unavailable Potter, M Abimbola CHOPPED STRAND OPERATOR Unavailable Unavailable Potter, M Abimbola CHOPPED STRAND OPERATOR Unavailable Unavailable Potter, M Abimbola CHOPPED STRAND OPERATOR Unavailable Unavailable Potter, M Abimbola CHOPPED STRAND OPERATOR Unavailable Unavailable Ebony Karimith CHOPPED STRAND OPERATOR Unavailable Unavailable Ebony Karimidith CHOPPED STRAND OPERATOR Unavailable Unavailable Ebony Karimidith CHOPPED STRAND OPERATOR Unavailable Unavailable Ebony Karimi CHOPPED STRAND OPERATOR Unavailable Unavailable Re-disclosure Warning The records that [...] is protected by Article 27-F of the [facility] Public Health law. If you continue you may have access to information: Regarding HIV / AIDS; Provided by facilities licensed or operated by the [facility] Office of Mental Health; or Provided by the [facility] Office for People With Developmental Disabilities. If such information is present, then the following [facility] mandated warning applies: This information has been [...] law may result in a fine or long term sentence or both. A general authorization for the release of medical or other information is NOT sufficient authorization for further disc losure. Family History Family Member Name Family Member Gender Family Member Status Date o f Status Description Data Source(s) Unknown Female Problem [facility] ([facility]) Unknown Female Problem [facility] ([facility]) Unknown Female Problem [facility] ([facility]) Unknown Female Problem [facility] ([facility]) Unknown Unknown Problem [facility] ([facility]) Encounters Encounter Providers Location Date Indications Data Source(s ) Outpatient 02/25/2021 09:37:25 AM EST [facility] ([facility]) Outpatient Attender: Abimbola MónicaHawkins 02/09/2021 01:45:0 0 PM EDT Xray [facility] Xray Outpatient Attender: Reji Medellin 0 04/23/2020 08:40:00 AM EST [facility] ([facility] ) Immunizations Vaccine Date Status Description Data Source(s) COVID-19 VACCINE, MRNA-1273, LNP-S (MODERNA)/PF 07/13/2020 1 2:00:00 AM EDT completed [facility] COVID-19 VACCINE Moderna 07/13/2020 12:00:00 AM EDT completed [facility] Vaccine Series Complete: YESThis Data wa s Submitted to [facility] Via [email or web address]. COVID-19 VACCINE, MRNA-1273, LNP-S (MODERNA)/PF 06/14/2020 1 2:00:00 AM EST completed [facility] COVID-19 VACCINE Moderna 06/14/2020 12:00:00 AM EST completed [facility] Vaccine Series Complete: NOThis Data was Submitted to [facility] Via [email or web address]. Medications Medication Brand Name Start Date Product [...] type / Coverage type Policy ID Covered green party ID Covered green party's relationship to landon Policy Landon Plan Information MEDICARE [id number] SP [id number] Medicare C [id number] SELF [id number] D MEDICARE [id number] SP [id number] D MEDICARE M [id number] S [id number] D Medicare [place] Primary [id number] Self [facility] F [id number] SELF [id number] [employer] [facility] Part B [id number] Self SELF PAY OTHER COMMERCIAL [id number] SP [id number] MEDICARE [id number] SP [id number] Medicare Natl Govt Servic Medicare Primary [id number] Self [id number] MEDICARE C [id number] S [id number] D [facility] Commercial [id number] Self [id number] Medicare Natl Gov't Servi Medicare Primary [id number] Self [id number] Medicare Natl Govt Servic Medicare Primary [id number] Self [id number] Medicare Natl Govt Servic Medicare Primary [id number] Self 0 [id number] MEDICARE -O/P [id number] 18 [id number] COMMERCIAL -O/P [id number] 18 [id number] MEDICARE PART A -O/P [id number] 18 [id number] Medicare Dme Supplies Medigap Part B [id number] Self [employer] Part B [id number] Self Medicare Natl Govt Servic Medicare Primary [id number] Self Medicare Natl Gov't Servi Medicare Primary [id number] Self [facility] Commercial [id number] Self [place] [employer] [id number] S [id number] MEDICARE PART A M [id number] S [id number] [place] [employer] O [id number] S [id number] D [facility] [id number] SP [id number] MEDICARE C [id number] S [id number] [facility] [place] [id number] S [id number] [facility] [id number] Medicare Natl Govt Servic Medicare Primary [id number] Self [id number] [facility] [employer] Part B [id number] Self [id number] Medicare Natl Govt Servic Medicare Primary [id number] Self 1 [id number] Medicare Natl Govt Servic Medicare Primary [id number] Self 1 [id number] Medicare Natl [facility] Primary [id number] Self 1 [id number] Problems, Conditions, and Diagnoses Code Display Name Description Problem Type Effective Dates Data Source(s) M25.571 Pain in right ankle and joints of right foot M25.571 - Pain in right ankle and joints of right foot Diagnosis 02/09/2021 01:45:00 PM EDT [facility] Surgeries/Procedures No Information Results ID Date Data Source [id number] 02/25/2021 10:21:00 AM EST 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 Professional interpretation performed by [facility] Medical Imaging at [facility] . Name Value Range Interpretation Code Description Data Krupa rce(s) Supporting Document(s) ID Date Data Source [id number] 02/09/2021 02:23:00 PM EDT [address] [address] Patient Name: Charley Melendez Exam Date: 02/09/21 : 1940 Ordering Doctor: Abimbola Karimi Attending Doctor: Abimbola Karimi CC: EXAM: ANKLE, right side, four views. INDICATION: Ankle pain FINDINGS: There is no fracture or dislocation. The ankle mortise is intact. Bone density appears normal, and there is no significant degenerative change. CONCLUSION: Normal ankle. Professional interpretation performed by [facility] Medical Imaging at [facility] . End of diagnostic report: [id number] Signed: Satish Kim MD 02/09/21 143 Interpreted by: Nkechi KimoTranscribed by: Satish Kim Name Value Range Interpretation Code Description Data Krupa rce(s) Supporting Document(s) ID Date Data Source [id number] 04/23/2020 10:18:00 AM EST [facility] ([facility]) Name Value Range Interpretation Code Description Data Krupa rce(s) Supporting Document(s) Thyrotropin [Units/volume] in Serum or Plasma by Detec tion limit <= 0.05 mIU/L 3.46 uIU/mL 0.36-3.74 [facility] ([facility] ) ID Date Data Source [id number] 04/23/2020 10:18:00 AM EST [facility] ([facility]) Name Value Range Interpretation Code Description Data Krupa rce(s) Supporting Document(s) Cholesterol [Mass/volume] in Serum or Plasma 246 mg/dL 131-200 [facility] ([facility]) Cholesterol in HDL [Mass/volume] in Serum or Plasma 48 mg/dL 35-60 [facility] ([facility]) Cholesterol in LDL [Mass/volume] in Serum or Plasma by calcu lation 162 CALC 50-159 [facility] ([facility]) Triglyceride [Mass/volume] in Serum or Plasma 180 mg/dL 30-150 [facility] ([facility]) ID Date Data Source [id number] 04/23/2020 10:18:00 AM EST [facility] ([facility]) Name Value Range Interpretation Code Description Data Krupa rce(s) Supporting Document(s) Glucose [Mass/volume] in Serum or Plasma 95 mg/dL 74-99 [facility] ([facility]) 100-125 mg/dL PRE-DIABETES/FASTING >126 mg/dL DIABETES/FASTING Urea nitrogen [Mass/volume] in Serum or Plasma 19 mg/dL 7-18 [facility] ([facility]) Creatinine 1.1 mg/dL 0.6-1.3 [facility] ([facility]) Sodium [Moles/volume] in Serum or Plasma 140 meq/L 136-145 [facility] ([facility]) Carbon dioxide, total [Moles/volume] in Serum or Plasma 33 meq/L 21 -32 [facility] ([facility]) Chloride [Moles/volume] in Serum or Plasma 102 meq/L 98-107 [facility] ([facility]) Potassium [Moles/volume] in Serum or Plasma 3.8 meq/L 3.5-5.1 [facility] ([facility]) Calcium [Mass/volume] in Serum or Plasma 8.5 mg/dL 8.5-10.1 [facility] ([facility]) Total Bilirubin 0.7 mg/dL 0.2-1.0 [facility] ([facility]) Alkaline phosphatase isoenzyme [Units/volume] in Serum or Pl asma 84 mg/dL 46-116 [facility] ([facility]) Alanine aminotransferase [Enzymatic activity/volume] in Seru m or Plasma 22 U/L 12-78 [facility] ([facility]) Aspartate aminotransferase [Enzymatic activity/volume] in Serum or Plasma 18 U/L 15-37 [facility] ([facility] ) Albumin [Mass/volume] in Serum or Plasma 3.5 g/dL 3.4-5.0 [facility] ([facility]) A/G Ratio 0.90 CALC 1.00-1.90 [facility]) Glomerular filtration rate/1.73 sq M pre dicted among non-blacks [Volume Rate/Area] in Serum or Plasma by Creatinine-based formula (MDRD) 48 mL/min [facility] ([facility]) Proteinase 3 Ab [Units/volume] in Serum 7.4 g/dL 6.4-8.2 [facility] Glomerular filtration rate/1.73 sq M pre dicted among blacks [Volume Rate/Area] in Serum or Plasma by Creatinine-based formula (MDRD) 58 mL/min [facility] <content>CHRONIC KIDNEY DISEASE STAGING PER NKF</content>
<content></content>
<content>STAGE I & II GFR >= 60 NORMAL TO MILDLY DECREASED</content>
<content>STAGE III GFR 30-59 MODERATELY DECREASED</content>
<content>STAGE IV GFR 15-29 SEVERELY DECREASED</content>
<content>STAGE V GFR <15 VERY LITTLE GFR LEFT</content>
<content>ESRD GFR <15 ON DIRECTOR AIRPORT</content>
<content></content> ID Date Data Source [id number] 04/23/2020 10:18:00 AM EST [facility] ([facility]) Name Value Range Interpretation Code Description Data Krupa rce(s) Supporting Document(s) Hemoglobin [Mass/volume] in Blood 13.9 g/dL 12.0-18.0 [facility] ([facility]) Erythrocytes [#/volume] in Blood by Automated count 4.86 x10*6/UL 4.2 0-6.30 [facility] ([facility]) Leukocytes [#/volume] in Blood by Automated count 5.5 x10*3/UL 4.1-10 .9 [facility] ([facility]) MCV 83.7 fL 80.0-97.0 [facility] [facility] MCH 28.6 pg 26.0-32.0 [facility] [facility] Hematocrit [Volume Fraction] of Blood by Automated count 40.7 % 3 7.0-51.0 [facility] MCHC 34.1 g/dL 31.0-38.0 [facility] [facility]) Erythrocyte distribution width [Ratio] by Automated count 13.0 % 11.6-13.7 [facility] ([facility]) Lymph % 33.1 % 10.0-58.5 [facility] [facility]) MPV 8.2 FL 7.8-11.0 [facility] ([facility]) Platelets [#/volume] in Blood by Automated count 260 x10*3/UL 140-440 [facility] ([facility]) Lymph # 1.8 x10*3/UL 0.6-4.1 [facility] ([facility]) Mid % 7.4 % 1.7-9.3 [facility] [facility]) Neut % 59.5 % 37.0-92.0 [facility] ([facility]) Mid # 0.4 x10*3/UL 0.1-0.6 [facility] ([facility]) Neut # 3.3 x10*3/UL 2.0-7.8 [facility] ([facility]) Procedure Social History No Information Vital Signs ID Date Data Source UNK Name Value Range Interpretation Code Description Data Source(s) Systolic blood pressure 130 mm[Hg] 130 mm[Hg[facility] Diastolic blood pressure 80 mm[Hg] 80 mm[Hg] [facility] ([facility]) Body height 64 [in_i] 64 [in_i] [facility] ([facility]) 5'4" Body weight 207.25 [lb_av] 207.25 [lb_av] [facility] ([facility]) Body mass index (BMI) [Ratio] 35.6 kg/m2 35.6 k g/m2 [facility] ([facility])
[2021-03-11] MEDS ORDERED: MOM 30ML SUSPENSION UDC PO PRN (20:30)
[2021-03-11] MEDS ORDERED: IBUP1TAB7 PO (20:48)
[2021-03-11] MEDS ORDERED: FURO40TA2 PO (20:48)
[2021-03-11] MEDS ORDERED: HOME MED LIST COMPLETE! XX SCH (20:50)
--- NOTE | 2021-03-11 20:50 | ECGEPIP ---
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
--- NOTE | 2021-03-11 21:15 | HPEPDOC ---
[facility] Medical History & Physical Date of Admission Mar 11, 2021 Date of Service: Mar 11, 2021 Primary Care Physician: Jr Urbina Collins Attending Physician: PATSY ORDONEZ MD History and Physical CHIEF COMPLAINT: Generalized weakness x2 weeks HISTORY OF PRESENT ILLNESS: Patient is a 80-year-old female with a history of depression, anxiety, CHRISTIE noncompliant on CPAP who presents with generalized weakness and poor oral intake. Patient reports that she does not feel that she needs to be in the hospital. Upon talking to her daughter, Mary, her daughter feels that the patient is not safe at home due to her progressing dementia. Patient's daughter does not want the patient to know that they are considering placement for her at this time. Patient reports that she has been feeling weak for the past 2 weeks. She reports that she fell twice in the past 2 weeks due to weakness and denies any loss of consciousness. She reports that she was able to subsequently after the falls stand up and walk to her bed. She has stayed in her bed due to weakness for the past few weeks. She states that it is just a generalized weakness and she does not have any associated headaches, visual blurriness, numbness or tingling in her extremities or face, any motor deficits and does report some dysuria that is no longer present. Patient denies any nausea, vomiting, diarrhea, constipation, melena, hematochezia, dysuria, hematuria at this time. Patient reports that she would not like to be resuscitated or intubated in the hospital. Patient reports that if she is unable to make decisions that we should call her , at [phone]. She also reported that we c ould call her daughter Thao at [phone] or Haylie at [phone]. REVIEW OF SYSTEMS: General: Patient denies fevers HEENT: Patient denies headaches Cardiovascular: Patient denies chest pain Respiratory: Patient denies shortness of breath, cough GI: Patient denies abdominal pain, nausea, vomiting, diarrhea : Patient denies increased frequency or pain with urination Extremities: Patient denies swelling or pain in extremities Neurological: Patient denies numbness or tingling in legs Skin: Patient denies any new rashes or lesions. Hematologic: Patient denies any easy bruising. Lymphatic: Patient denies any lumps or bumps in neck, axilla, or groin PAST MEDICAL/SURGICAL HISTORY: Depression Anxiety History of breast cancer CHRISTIE, noncompliant on CPAP Chronic venous insufficiency Total knee replacement SOCIAL HISTORY: Patient lives in [place] with her . Patient denies any smoking, alcohol, marijuana, and illicit drug use. FAMILY HISTORY: Patient denies any at this time, however patient does have some memory deficits. ALLERGIES: Please see below. HOME MEDICATIONS: Please see below. PHYSICAL EXAMINATION: Vital Signs Date Time Temp Pulse Resp B/P (MAP) Pulse Ox O2 Delivery O2 Flow Rate FiO2 03/11/21 13:23 96.5 84 18 113/60 (77) 94 Room Air GENERAL APPEARANCE: Patient is in no acute distress. She is lying back in her gurney at 30 degrees upright position. Patient is alert to self however is confused to the year, and believed at first that she was in [facility]. During the medical interview the patient was able to speak with me hold a conversation and explain her desire to go home. She did not express tangential thinking. HEENT: Normocephalic atraumatic, bilateral palpebral eye mildly erythematous, mild crusting at bilateral lateral canthi. No rhinorrhea, no active ocular discharge. Mucous membranes moist, EOMI. CARDIOVASCULAR: Distant heart sounds, no murmurs rubs or gallops, regular rate and rhythm. LUNGS: Clear to auscultation bilaterally, no wheezes rales or rhonchi. ABDOMEN: Soft, nontender, nondistended. MUSCULOSKELETAL: Upper and lower extremity strength 4 out of 5. There is a scar located at approximately L1-4 that the patient could not recall or tell me what it was from. EXTREMITIES: No clubbing, erythema, edema in any of the extremities. Radial and pedal pulses +2 NEUROLOGICAL: No focal motor deficits, cranial nerves II to XII intact. PSYCHIATRIC: Affect full and open, alert and oriented to self only, some memory deficits however she is able to hold a conversation and is cooperative on exam. LABORATORY DATA: IMAGING: Cervical spine CT, 03/11/2021Osteopenia and degenerative spondylosis. No evidence for acute pathology or trauma/injury. Chest x-ray, 03/11/2021no acute cardiopulmonary process appreciated. Head CT, 03/11/2021trophy and microvascular ischemic changes. No acute intracranial hemorrhage, infarction, or mass or mass-effect. Abdomen/pelvis CT, 03/11/2021no acute abdominopelvic pathology appreciated. Chest CT, 03/11/2021no acute mediastinal or pleuroparenchymal process. MICROBIOLOGY: Respiratory panel is neg ASSESSMENT/PLAN: #Generalized weakness Likely secondary to poor oral intake CFS consult placed for placement PT OT ordered #WILBUR, likely secondary to dehydration and poor oral intake i/s/o Lasix and Ibuprofen use Patient's baseline creatinine is 1.18, admitting creatinine was 1.9 Patient has received fluid boluses 1.5 L of normal saline in the ED Continue to monitor BMP -hold Lasix and Ibuprofen -f/u UProtein and renal US #UTI Urinalysis positive Starting patient on amoxicillin 500 mg twice daily for the next 5 days Continue to monitor CBC with differential #Chronic venous insufficiency Patient is on furosemide at home Hold furosemide at this time due to WILBUR Consider starting patient back on furosemide Weigh patient daily Monitor daily I's and O's Teds and sequentials ordered #Chronic back pain Hold patient's ibuprofen at this time in the setting of WILBUR #Class 3 obesity -complicates care VTE prophylaxis: Heparin 5000 subcutaneous every 12 hours, teds and sequentials Disposition: Admit to [facility] for observation. Will need PFS for home safety evaluation and potential placement. Home Medications Scheduled Furosemide (Furosemide) 40 Mg Tablet, 40 MG PO DAILY Ibuprofen (Ibuprofen) 800 Mg Tablet, 800 MG PO TID Allergies Coded Allergies: codeine (Verified Allergy, Intermediate, hives, 07/27/18) A-FIB/CHADSVASC A-FIB History Current/History of A-Fib/PAF?: No Current PO Anticoag Therapy: No GME ATTESTATION GME ATTESTATION My faculty preceptor for this patient encounter was physically present during the encounter and was fully available. All aspects of the patient interview, examination, medical decision making process, and medical care plan development were reviewed and approved by the faculty preceptor. The faculty preceptor is aware and concurs with the plan as stated in the body of this note and will attest to such by his/her cosignature. ATTENDING NOTE Time of service 945pm I examined the patient, discussed the case with and agree with the findings as documented. Benjamin Pulido DO Mar 11, 2021 21:15 PATSY ORDONEZ MD 26, 2021 03:25
[2021-03-11] MEDS: HEPARIN SOD (PORCINE) 5000UNITS/ML 1ML VIAL/SYRINGE SQ SCH (21:41)
[2021-03-11] MEDS: AUGMENTIN 500 MG TAB PO SCH (21:41)
[2021-03-12] MEDS: NS 1,000 ML IV SCH ×2 (03:49→17:55)
--- NOTE | 2021-03-12 04:45 | REPVR ---
PROCEDURE INFORMATION: Exam: US Retroperitoneal Limited, Kidneys Exam date and time: 03/12/2021 4:31 AM Age: 80 years old Clinical indication: Other: Parmjit TECHNIQUE: Imaging protocol: Real-time ultrasound of the retroperitoneum with image documentation. Examination was focused on the kidneys. COMPARISON: CT ABD PELVIS W/O CONTRAST 03/11/2021 3:54 PM FINDINGS: Right kidney: The right kidney measures 10.4 x 4.7 x 4.8 cm. There is thinning of the renal cortex , increased renal cortical echogenicity and increased medullary / sinus fat. There is no right renal mass, stone, cyst or hydronephrosis. Left kidney: The left kidney measures 9.4 x 3.9 x 4.4 cm. There is thinning of the renal cortex , increased renal cortical echogenicity and increased medullary / sinus fat. There is no left renal mass, stone, cyst or hydronephrosis. Bladder: Limited evaluation of the urinary bladder appears to be under distended with no gross abnormality. Right and left ureteral jets were not seen. IMPRESSION: Sonographic findings suggestive of chronic medical renal disease. No focal renal abnormality and no hydronephrosis seen. Electronically signed by: Toño Foley On 03/12/2021 04:44:46 AM
[2021-03-12 07:48] LABS: BASO % 0.8 % (0.0-1.0); EOS # 0.1 10^3/uL (0.0-0.5); EOS % 2.3 % (0.0-3.0); HEMATOCRIT 37.5 % (36.0-47.0); HEMOGLOBIN 12.5 g/dl (12.0-15.5); LYMPH # 1.3 10^3/uL (1.5-5.0); LYMPH % 25.6 % (24.0-44.0); MEAN CORPUSCULAR HEMOGLOBIN 28.9 pg (27.0-33.0); MEAN CORPUSCULAR HGB CONC 33.3 g/dl (32.0-36.5); MEAN CORPUSCULAR VOLUME 86.6 fl (80.0-96.0); MONO # 0.4 10^3/uL (0.0-0.8); MONO % 8.5 % (2.0-8.0); NEUTROPHILS # 3.3 10^3/uL (1.5-8.5); NEUTROPHILS % 62.4 % (36.0-66.0); PLATELET COUNT, AUTOMATED 185 10^3/uL (150-450); RED BLOOD COUNT 4.33 10^6/uL (4.00-5.40); WHITE BLOOD COUNT 5.2 10^3/uL (4.0-10.0)
[2021-03-12 08:15] VITALS: BP 119/63
[2021-03-12 08:26] LABS: CREATININE FOR GFR 1.28 MG/DL (0.55-1.30); GLOMERULAR FILTRATION RATE 42.9 (>39); POTASSIUM SERUM 3.4 MEQ/L (3.5-5.1)
[2021-03-12] MEDS ORDERED: POTASSIUM CHLORIDE 10MEQ SR TABLET PO ONE (09:40)
--- NOTE | 2021-03-12 09:40 | IPNPDOC ---
Text Note Date of Service The patient was seen on 03/12/21. NOTE S: Patient seen and evaluated at bedside this AM. She was admitted overnight for generalized weakness and associated falls. Today, reports continued weakness and bilateral lower extremity pain and swelling. Describes her LE pain as burning sensation that occurs with movement and exertion only. She uses a walker for assisted ambulation at baseline. Reports right lower quadrant abdominal pain that she describes as a burning sensation worsened with movement and improved with rest. She tells me this pain began 5 days ago and has improved minimally since then. Reports dysuria and urinary hesitancy. Reports shortness of breath at rest and occasional dry cough, which she tells me has been present since being ill 4 weeks ago with common cold. Reports occasional nausea with associated vomiting. Denies fever/chills, productive cough, lightheadedness. Denies changes in bowel movements, changes in vision. O: GEN: Alert, awake, laying in bed, NAD HEENT: NC/AT, EOMI, nares patent, moist mucous membranes, Mallampati 3 CARDIO: RRR, normal heart sounds, no murmurs PULM: CTA b/l, no WRR, no accessory muscles used ABD: Bilateral lower abdominal pain with mild palpation, no rebound tenderness, soft, nondistended, normal BS EXTREMITIES: Bilateral lower extremity lipedema, no pitting edema/cyanosis, 2+ PT pulses, normal ROM NEURO: CN III-XII grossly intact, strength 5/5 PSYCH: AOx3, no depressed/anxious mood IMAGING: CT cervical spine (03/11) Osteopenia and degenerative spondylosis. No evidence for acute pathology or trauma/injury. CXR (03/11) No acute cardiopulmonary process appreciated. Head CT (03/11) Atrophy and microvascular ischemic changes. No acute intracranial hemorrhage, infarction, or mass/mass effect. CT abdomen/pelvis (03/11) No acute abdominopelvic pathology appreciated. CT chest (03/11) No acute mediastinal or pleuroparenchymal process. Renal u/s (03/12) Sonographic findings suggestive of chronic medical renal disease. No focal renal abnormality and no hydronephrosis seen. A/P: Mary is a 80-year-old female PMH CHRISTIE noncompliant with CPAP, chronic bilateral lower extremity venous insufficiency, depression/anxiety who presents with poor oral intake, generalized weakness with recurrent falls, found to have Cr 1.9, U/A+ for LE/trace ketones/9 WBC concerning for WILBUR and UTI, with improved Cr and now on day 2 Augmentin. Patient's family is concerned about her progressive dementia. #Generalized weakness, most likely 2/2 deconditioning, poor oral intake PT/OT eval pending PFS consult pending *Spoke with patient's daughter, Haylie ([phone]), who tells me she and family are more interested in home services such as meals on wheels and home health aid for Mary rather than placement. PFS (Jacek Sanchez) has been made aware and will work on establishing this over the next few days. #WILBUR, most likely 2/2 poor oral intake Patient's baseline Cr 1.18 (03/12) Cr 1.28 Continue to hold patient's home Lasix, pending further improvement Continue to monitor BMP We will give a total of 2 L of normal saline. #UTI, symptomatic U/A+ for 1+ LE, trace ketones, 9 WBC Continue Augmentin (started 03/11, stop date 03/16) Continue to monitor CBC with differential #Chronic venous insufficiency Continue to hold patient's home Lasix, pending further improvement Continue to monitor I's and O's #Chronic back pain Continue to hold home ibuprofen, pending further improvement #Class III obesity, BMI 43.2 Complicating care #DVT Prophylaxis Heparin twice daily Teds and sequentials DIET: Regular ACTIVITY: Activity as tolerated, fall risk precautions DISPO: Pending PT/OT eval and PFS consult for placement VS,Fishbone, I+O VS, Fishbone, I+O Laboratory Tests 03/11/21 13:43 03/12/21 07:06 Vital Signs Date Time Temp Pulse Resp B/P (MAP) Pulse Ox O2 Delivery O2 Flow Rate FiO2 03/12/21 08:08 98.2 18 99 Room Air 03/12/21 07:45 153/83 (106) 03/12/21 07:30 69 I&O- Last 24 Hours up to 6 AM 03/12/21 06:00 Intake Total 1000 ml Balance 1000 ml GME ATTESTATION GME ATTESTATION My faculty preceptor for this patient encounter was physically present during the encounter and was fully available. All aspects of the patient interview, examination, medical decision making process, and medical care plan development were reviewed and approved by the faculty preceptor. The faculty preceptor is aware and concurs with the plan as stated in the body of this note and will attest to such by his/her cosignature. ATTENDING NOTE I, Yury Leon DO, have independently examined this patient and performed my own physical exam, as well as reviewed the documentation and edited where necessary. I have discussed in detail with the resident the findings and plan of treatment as documented by the resident and edited their note. I agree with their findings and treatment plan and have edited their documentation. I will continue to follow the patient during this hospital stay. Karla Wheeler DO Mar 12, 2021 09:40 YURY LEON DO Mar 12, 2021 18:10
[2021-03-12] MEDS: HEPARIN SOD (PORCINE) 5000UNITS/ML 1ML VIAL/SYRINGE SQ SCH ×2 (10:25→20:00)
[2021-03-12] MEDS: AUGMENTIN 500 MG TAB PO SCH ×2 (10:44→20:00)
[2021-03-12 14:15] VITALS: BP 121/60
[2021-03-12 19:00] VITALS: BP 117/70
--- NOTE | 2021-03-12 19:31 | IPNPDOC ---
Text Note Date of Service The patient was seen on 03/12/21. NOTE Alerted by nursing staff at approx 1930 that patient wanted to be changed to FULL CODE. I saw and talked with patient at this time who tells me that she would want all medical interventions necessary if she were to arrest and expressed understanding. I believe patient is in good mental status and has the capacity to make this decision. New MOLST form filled out. VS,Fishbone, I+O VS, Fishbone, I+O Laboratory Tests 03/12/21 07:06 Vital Signs Date Time Temp Pulse Resp B/P (MAP) Pulse Ox O2 Delivery O2 Flow Rate FiO2 03/12/21 19:00 98.5 81 18 117/70 (86) 97 Room Air I&O- Last 24 Hours up to 6 AM 03/12/21 06:00 Intake Total 1000 ml Balance 1000 ml HOLLIE GIBSON Mar 12, 2021 19:31
[2021-03-12 22:00] VITALS: BP 111/67
[2021-03-12 22:29] VITALS: O2SAT 93
[2021-03-13] MEDS: MAALOX 30 ML SUSP *UDC PO PRN ×2 (01:21→17:35)
[2021-03-13 06:00] VITALS: BP 113/66
[2021-03-13 06:45] LABS: BASO % 0.8 % (0.0-1.0); EOS # 0.2 10^3/uL (0.0-0.5); EOS % 3.2 % (0.0-3.0); HEMATOCRIT 36.5 % (36.0-47.0); LYMPH # 1.4 10^3/uL (1.5-5.0); LYMPH % 27.7 % (24.0-44.0); MEAN CORPUSCULAR HEMOGLOBIN 28.6 pg (27.0-33.0); MEAN CORPUSCULAR HGB CONC 32.9 g/dl (32.0-36.5); MEAN CORPUSCULAR VOLUME 87.1 fl (80.0-96.0); MONO # 0.4 10^3/uL (0.0-0.8); NEUTROPHILS % 59.9 % (36.0-66.0); PLATELET COUNT, AUTOMATED 174 10^3/uL (150-450); RED BLOOD COUNT 4.19 10^6/uL (4.00-5.40)
[2021-03-13 07:05] LABS: CALCIUM LEVEL 8.5 MG/DL (8.8-10.2); CREATININE FOR GFR 1.02 MG/DL (0.55-1.30); GLOMERULAR FILTRATION RATE 55.8 (>39); POTASSIUM SERUM 3.8 MEQ/L (3.5-5.1)
[2021-03-13] MEDS: HEPARIN SOD (PORCINE) 5000UNITS/ML 1ML VIAL/SYRINGE SQ SCH ×2 (09:28→20:59)
[2021-03-13] MEDS: AUGMENTIN 500 MG TAB PO SCH ×2 (09:28→20:59)
[2021-03-13 10:00] VITALS: BP 113/71
--- NOTE | 2021-03-13 10:18 | IPNPDOC ---
Text Note Date of Service The patient was seen on 03/13/21. NOTE Subjective: Patient is a 80-year-old female who presented to the hospital with weakness and was found to have acute kidney injury. Patient is still feeling slightly weak. Patient will need to be evaluated by physical therapy. Patient not complain of any pain but does state that she has been in the hospital for too long and wants to go home. Patient is otherwise feeling well today. Patient apparently did have some issues with owning last night. Patient also wanted to be changed to a full code which was performed by the night staff last night. Review of systems: General: Patient denies fevers HEENT: Patient denies headaches Cardiovascular: Patient denies chest pain Respiratory: Patient denies shortness of breath, cough GI: Patient denies abdominal pain, nausea, vomiting, diarrhea : Patient denies increased frequency or pain with urination Extremities: Patient denies swelling or pain in extremities Neurological: Patient denies numbness or tingling in legs Physical exam: Vitals: See below General: Alert and oriented female patient who is lying in bed when I walked in. Patient not appear to be in any acute distress. HEENT: Normocephalic, atraumatic, moist mucous membranes. Neck: No lymphadenopathy or thyromegaly Cardiac: Regular rate and rhythm, no murmurs, normal S1, normal S2 Pulm: Clear to auscultation bilaterally. No wheezes, rhonchi, rales Abd: Nondistended, nontender to palpation, normal bowel sounds Ext: No edema bilateral lower extremities Labs: See below Imaging: No new imaging is been performed Assessment/plan: 80-year-old female with past medical history of CHRISTIE with noncompliance with CPAP, chronic bilateral lower extremity venous insufficiency, depression anxiety presented with poor oral intake, generalized weakness with recurrent falls, found to have a creatinine 1.9 with a positive urinary analysis concern for WILBUR with UTI. 1. Generalized weakness secondary to most likely deconditioning and poor oral intake. Patient will need to work with physical lactational therapy. Spoke with the patient's daughter Haylie yesterday who is more interested in obtaining more services in the home versus placement. Patient seems okay with waiting until Monday for the services to be able to be obtained. I did contact PFS yesterday and spoke with him about this and they are aware. 2. Acute kidney injury, this is resolved at this time. Patient received 2 L of normal saline. We will continue to monitor and Lasix can be started tomorrow. 3. Urinary tract infection. Continue Augmentin. Urine culture was contami nated. Augmentin will be given for 5 days. 4. Chronic venous insufficiency. Lasix can be restarted tomorrow. Monitor I's and O's. JAYASHREE stockings. 5. Chronic back pain. Hold ibuprofen due to WILBUR. 6. Class I obesity. Complicating the patient's care. Patient's BMI is 34.1. DVT Prophylaxis: Teds and sequentials with heparin Disposition: Pending services in the home. Possible discharge Monday or Monday. Patient will be made ALC status today. VS,[place], I+O VS, [place], I+O Laboratory Tests 03/13/21 06:14 Vital Signs Date Time Temp Pulse Resp B/P (MAP) Pulse Ox O2 Delivery O2 Flow Rate FiO2 03/13/21 06:00 97.3 69 18 113/66 (82) 97 Room Air I&O- Last 24 Hours up to 6 AM 03/13/21 06:00 Intake Total 830 ml Output Total 200 ml Balance 630 ml LAURI LEON DO Mar 13, 2021 10:18
[2021-03-13] MEDS: CALCIUM CARBONATE 500 MG CHEW U/D PO PRN (11:46)
[2021-03-13] MEDS: POLYVINYL ALCOHOL OPHTH SOLN 15 ML(LIQUITEARS) OU PRN ×2 (14:09→17:36)
[2021-03-14 05:48] LABS: BASO % 0.6 % (0.0-1.0); EOS # 0.2 10^3/uL (0.0-0.5); EOS % 3.7 % (0.0-3.0); HEMATOCRIT 33.9 % (36.0-47.0); HEMOGLOBIN 11.2 g/dl (12.0-15.5); LYMPH # 1.6 10^3/uL (1.5-5.0); LYMPH % 31.1 % (24.0-44.0); MEAN CORPUSCULAR HEMOGLOBIN 28.5 pg (27.0-33.0); MEAN CORPUSCULAR VOLUME 86.3 fl (80.0-96.0); MONO # 0.5 10^3/uL (0.0-0.8); MONO % 8.8 % (2.0-8.0); NEUTROPHILS # 2.8 10^3/uL (1.5-8.5); NEUTROPHILS % 55.4 % (36.0-66.0); PLATELET COUNT, AUTOMATED 176 10^3/uL (150-450); RED BLOOD COUNT 3.93 10^6/uL (4.00-5.40); WHITE BLOOD COUNT 5.1 10^3/uL (4.0-10.0)
[2021-03-14 06:00] VITALS: BP 125/68
[2021-03-14 06:06] LABS: BLOOD UREA NITROGEN 18 MG/DL (7-18); CALCIUM LEVEL 9.2 MG/DL (8.8-10.2); CARBON DIOXIDE LEVEL 23 MEQ/L (21-32); CHLORIDE LEVEL 115 MEQ/L (98-107); GLOMERULAR FILTRATION RATE > 60.0 (>39); GLUCOSE, FASTING 90 MG/DL (70-100); MAGNESIUM LEVEL 1.8 MG/DL (1.8-2.4); POTASSIUM SERUM 3.7 MEQ/L (3.5-5.1); SODIUM LEVEL 146 MEQ/L (136-145)
[2021-03-14] MEDS: HEPARIN SOD (PORCINE) 5000UNITS/ML 1ML VIAL/SYRINGE SQ SCH ×2 (10:35→20:22)
[2021-03-14] MEDS: AUGMENTIN 500 MG TAB PO SCH ×2 (10:35→20:22)
[2021-03-15 06:00] VITALS: BP 129/74
[2021-03-15 08:17] LABS: BASO % 0.8 % (0.0-1.0); EOS # 0.2 10^3/uL (0.0-0.5); EOS % 3.2 % (0.0-3.0); HEMATOCRIT 35.6 % (36.0-47.0); HEMOGLOBIN 11.6 g/dl (12.0-15.5); LYMPH # 1.2 10^3/uL (1.5-5.0); LYMPH % 23.7 % (24.0-44.0); MEAN CORPUSCULAR HEMOGLOBIN 28.5 pg (27.0-33.0); MEAN CORPUSCULAR HGB CONC 32.6 g/dl (32.0-36.5); MEAN CORPUSCULAR VOLUME 87.5 fl (80.0-96.0); MONO # 0.4 10^3/uL (0.0-0.8); MONO % 8.8 % (2.0-8.0); NEUTROPHILS # 3.2 10^3/uL (1.5-8.5); NEUTROPHILS % 63.1 % (36.0-66.0); PLATELET COUNT, AUTOMATED 187 10^3/uL (150-450); RED BLOOD COUNT 4.07 10^6/uL (4.00-5.40)
[2021-03-15 08:44] LABS: BLOOD UREA NITROGEN 12 MG/DL (7-18); CALCIUM LEVEL 8.9 MG/DL (8.8-10.2); CARBON DIOXIDE LEVEL 26 MEQ/L (21-32); CHLORIDE LEVEL 112 MEQ/L (98-107); CREATININE FOR GFR 0.89 MG/DL (0.55-1.30); GLOMERULAR FILTRATION RATE > 60.0 (>39); GLUCOSE, FASTING 93 MG/DL (70-100); MAGNESIUM LEVEL 1.6 MG/DL (1.8-2.4); POTASSIUM SERUM 3.6 MEQ/L (3.5-5.1); SODIUM LEVEL 144 MEQ/L (136-145)
[2021-03-15] MEDS: AUGMENTIN 500 MG TAB PO SCH ×2 (09:31→21:52)
[2021-03-15] MEDS: HEPARIN SOD (PORCINE) 5000UNITS/ML 1ML VIAL/SYRINGE SQ SCH ×2 (09:31→21:52)
[2021-03-15] MEDS: POLYVINYL ALCOHOL OPHTH SOLN 15 ML(LIQUITEARS) OU PRN ×2 (09:31→21:58)
[2021-03-15] MEDS: ACETAMINOPHEN TAB 650MG DOSE (2X325MG) PO PRN (21:52)
[2021-03-16 05:49] VITALS: BP 123/55
[2021-03-16 06:27] LABS: BASO % 0.4 % (0.0-1.0); EOS # 0.2 10^3/uL (0.0-0.5); EOS % 3.4 % (0.0-3.0); HEMATOCRIT 35.4 % (36.0-47.0); HEMOGLOBIN 11.6 g/dl (12.0-15.5); LYMPH # 1.7 10^3/uL (1.5-5.0); LYMPH % 33.5 % (24.0-44.0); MEAN CORPUSCULAR HEMOGLOBIN 28.7 pg (27.0-33.0); MEAN CORPUSCULAR HGB CONC 32.8 g/dl (32.0-36.5); MEAN CORPUSCULAR VOLUME 87.6 fl (80.0-96.0); MONO # 0.4 10^3/uL (0.0-0.8); MONO % 8.9 % (2.0-8.0); NEUTROPHILS # 2.6 10^3/uL (1.5-8.5); NEUTROPHILS % 53.4 % (36.0-66.0); PLATELET COUNT, AUTOMATED 185 10^3/uL (150-450); RED BLOOD COUNT 4.04 10^6/uL (4.00-5.40)
[2021-03-16 07:03] LABS: BLOOD UREA NITROGEN 9 MG/DL (7-18); CALCIUM LEVEL 8.4 MG/DL (8.8-10.2); CARBON DIOXIDE LEVEL 26 MEQ/L (21-32); CHLORIDE LEVEL 110 MEQ/L (98-107); CREATININE FOR GFR 0.88 MG/DL (0.55-1.30); GLOMERULAR FILTRATION RATE > 60.0 (>39); GLUCOSE, FASTING 85 MG/DL (70-100); MAGNESIUM LEVEL 1.6 MG/DL (1.8-2.4); POTASSIUM SERUM 3.5 MEQ/L (3.5-5.1); SODIUM LEVEL 143 MEQ/L (136-145)
[2021-03-16] MEDS: AUGMENTIN 500 MG TAB PO SCH (08:53)
[2021-03-16] MEDS: HEPARIN SOD (PORCINE) 5000UNITS/ML 1ML VIAL/SYRINGE SQ SCH ×2 (08:54→20:20)
[2021-03-16] MEDS: CALCIUM CARBONATE 500 MG CHEW U/D PO PRN (08:58)
[2021-03-16] MEDS: MAG SULF 1GM/100ML (MAG RUN) 1 GM in IV 1 EA IV SCH ×2 (11:20→12:27)
[2021-03-16 17:29] VITALS: BP_SYST 109; BP_SYST 114; BP_SYST 121; BP_DIAS 83; BP_DIAS 89; BP_DIAS 91
[2021-03-16] MEDS: ACETAMINOPHEN TAB 650MG DOSE (2X325MG) PO PRN (20:20)
[2021-03-16 22:00] VITALS: BP 136/83
--- NOTE | 2021-03-16 23:22 | ECGEPIP ---
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
[2021-03-17 06:00] VITALS: BP 135/85
[2021-03-17] MEDS: HEPARIN SOD (PORCINE) 5000UNITS/ML 1ML VIAL/SYRINGE SQ SCH ×2 (08:21→20:13)
[2021-03-17] MEDS ORDERED: NS 1,000 ML IV SCH (09:05)
[2021-03-17 15:00] VITALS: BP_SYST 129; BP_SYST 138; BP_SYST 88; BP_DIAS 57; BP_DIAS 71; BP_DIAS 72
[2021-03-17 16:47] VITALS: BP_SYST 146; BP_SYST 150; BP_DIAS 82; BP_DIAS 84
[2021-03-17] MEDS: NS 1,000 ML IV SCH (17:33)
[2021-03-17 22:00] VITALS: BP 124/70
[2021-03-18] MEDS: NS 1,000 ML IV SCH ×2 (05:26→16:18)
[2021-03-18] MEDS: HEPARIN SOD (PORCINE) 5000UNITS/ML 1ML VIAL/SYRINGE SQ SCH ×2 (09:13→20:06)
[2021-03-18 09:19] VITALS: BP_SYST 126; BP_SYST 131; BP_SYST 132; BP_DIAS 72; BP_DIAS 73
[2021-03-18 14:00] VITALS: BP 115/91
[2021-03-18 15:17] VITALS: BP_SYST 135; BP_SYST 148; BP_DIAS 79; BP_DIAS 84
--- NOTE | 2021-03-18 16:20 | REP ---
INDICATION: Ab pain. COMPARISON: 07/27/2018. TECHNIQUE: Two views of the abdomen and pelvis. FINDINGS: There is normal bowel gas pattern. No bowel dilatation is seen, with no evidence of bowel obstruction. Metallic clips are seen in the right upper quadrant. Multiple phleboliths are seen in the pelvis. There are degenerative changes of the spine. IMPRESSION: No evidence of bowel obstruction. <Electronically signed by Dony White > 03/18/21 [id number]
[2021-03-18 17:36] LABS: ALBUMIN 2.4 GM/DL (3.2-5.2); ALT/SGPT 24 U/L (12-78); AMYLASE 26 U/L (25-115); BILIRUBIN,TOTAL 0.5 MG/DL (0.2-1.0); BLOOD UREA NITROGEN 9 MG/DL (7-18); C REACTIVE PROTEIN QUANTITATIV 3.37 MG/DL (0.00-0.30); CALCIUM LEVEL 7.9 MG/DL (8.8-10.2); CARBON DIOXIDE LEVEL 27 MEQ/L (21-32); CHLORIDE LEVEL 111 MEQ/L (98-107); CREATININE FOR GFR 0.74 MG/DL (0.55-1.30); GLOMERULAR FILTRATION RATE > 60.0 (>39); GLUCOSE, FASTING 85 MG/DL (70-100); LIPASE 79 U/L (73-393); MAGNESIUM LEVEL 1.6 MG/DL (1.8-2.4); POTASSIUM SERUM 3.7 MEQ/L (3.5-5.1); SODIUM LEVEL 142 MEQ/L (136-145); TOTAL PROTEIN 5.6 GM/DL (6.4-8.2)
[2021-03-18 17:37] LABS: BASO % 0.5 % (0.0-1.0); EOS # 0.1 10^3/uL (0.0-0.5); EOS % 2.1 % (0.0-3.0); HEMATOCRIT 33.3 % (36.0-47.0); HEMOGLOBIN 10.8 g/dl (12.0-15.5); LYMPH % 16.5 % (24.0-44.0); MEAN CORPUSCULAR HEMOGLOBIN 28.8 pg (27.0-33.0); MEAN CORPUSCULAR HGB CONC 32.4 g/dl (32.0-36.5); MEAN CORPUSCULAR VOLUME 88.8 fl (80.0-96.0); MONO # 0.5 10^3/uL (0.0-0.8); NEUTROPHILS # 4.5 10^3/uL (1.5-8.5); NEUTROPHILS % 72.4 % (36.0-66.0); PLATELET COUNT, AUTOMATED 203 10^3/uL (150-450); RED BLOOD COUNT 3.75 10^6/uL (4.00-5.40); WHITE BLOOD COUNT 6.3 10^3/uL (4.0-10.0)
[2021-03-18] MEDS: GASTROGRAFIN SOLUTION 30ML PO SCH ×2 (18:45→20:06)
[2021-03-18] MEDS ORDERED: LORazepam 2 MG/ML VIAL IV ONE (20:00)
[2021-03-18] MEDS ORDERED: ISOVUE-370 76% 100ML VIAL As Ordered ONE (21:31)
[2021-03-18 22:00] VITALS: BP 147/73
--- NOTE | 2021-03-18 23:04 | REPVR ---
PROCEDURE INFORMATION: Exam: CT Abdomen and Pelvis with Contrast Exam date and time: 03/18/21 (9:42pm) Age: 80 years old Clinical indication: Generalized abdominal pain TECHNIQUE: Imaging protocol: Computed tomography of the abdomen and pelvis with contrast. Radiation optimization: All CT scans at this facility use at least one of these dose optimization techniques: automated exposure control; mA and/or kV adjustment per patient size (includes targeted exams where dose is matched to clinical indication); or iterative reconstruction. Contrast material: Isovue 370 Contrast volume: 100 ml Contrast route: IV COMPARISON: CT ABDOMEN PELVIS of 03/11/21 FINDINGS: Lower lung hardin: Trace right pleural effusion. Heart probably top normal in size. Liver: Normal. No solid mass. Gallbladder and bile ducts: S/P cholecystectomy. No ductal dilatation. Pancreas: Normal. No ductal dilatation. Spleen: Normal. No splenomegaly. Adrenal glands: Normal. No mass. Kidneys and ureters: Normal. No hydronephrosis. Stomach and bowel: Acute sigmoid diverticulitis changes, involving most of the sigmoid colon. Moderate inflammatory changes along the left margin of the sigmoid colon. No drainable abscess. No bowel obstruction. No free air. Additional scattered colonic diverticuli. Appendix: No evidence of appendicitis. Intraperitoneal space: Unremarkable. No free air. No significant fluid collection. Vasculature: Unremarkable. No abdominal aortic aneurysm. Lymph nodes: Unremarkable. No enlarged lymph nodes. Urinary bladder: Unremarkable as visualized. Reproductive: Unremarkable as visualized. Bones/joints: No acute fracture. Mild chronic compression deformities of the superior endplates of T9 and L3 (stable appearance). Soft tissues: Unremarkable. IMPRESSION: Acute sigmoid diverticulitis changes (moderate in severity). No abscess. No bowel obstruction. No free air. S/P cholecystectomy. Trace right pleural effusion. Electronically signed by: Michelle Egan On 03/18/2021 23:04:24 PM
[2021-03-19 05:17] VITALS: BP_SYST 101; BP_SYST 103; BP_SYST 106; BP_DIAS 70; BP_DIAS 72
--- NOTE | 2021-03-19 05:22 | IPNPDOC ---
Text Note Date of Service Significant event NOTE CT abdomen pelvis ordered given patient generalized abdominal pain and impression : "Acute sigmoid diverticulitis changes (moderate in severity). No abscess. No bowel obstruction. No free air.S/P cholecystectomy.Trace right pleural effusion." Patient has been n.p.o. and requesting diet; will trial clears if patient unable to tolerate-continue NPO. Patient receiving normal saline at 80 mL's per hour. Given trace pleural effusion monitor fluid balance closely. Will add empiric coverage. Monitor patient with symptom management/supportive care and consider escalation of antibiotic coverage pending patient response. VS,Fishbone, I+O VS, Fishbone, I+O Laboratory Tests 03/18/21 16:59 Vital Signs Date Time Temp Pulse Resp B/P (MAP) Pulse Ox O2 Delivery O2 Flow Rate FiO2 03/18/21 22:00 98.4 74 18 147/73 (97) 95 Room Air I&O- Last 24 Hours up to 6 AM 03/19/21 06:00 Intake Total 820 ml Balance 820 ml BENJAMIN CEBALLOS NP Mar 19, 2021 05:22
[2021-03-19] MEDS: NS 1,000 ML IV SCH (05:27)
[2021-03-19] MEDS ORDERED: cefTRIAXone SOD 1 GM in D5W MINI-BAG PLUS 50 ML IV SCH (06:00)
[2021-03-19 06:45] LABS: BASO % 0.7 % (0.0-1.0); EOS # 0.2 10^3/uL (0.0-0.5); EOS % 4.3 % (0.0-3.0); HEMATOCRIT 31.6 % (36.0-47.0); HEMOGLOBIN 10.2 g/dl (12.0-15.5); LYMPH % 24.4 % (24.0-44.0); MEAN CORPUSCULAR HEMOGLOBIN 28.6 pg (27.0-33.0); MEAN CORPUSCULAR HGB CONC 32.3 g/dl (32.0-36.5); MEAN CORPUSCULAR VOLUME 88.5 fl (80.0-96.0); MONO # 0.4 10^3/uL (0.0-0.8); NEUTROPHILS # 2.5 10^3/uL (1.5-8.5); NEUTROPHILS % 60.1 % (36.0-66.0); PLATELET COUNT, AUTOMATED 188 10^3/uL (150-450); RED BLOOD COUNT 3.57 10^6/uL (4.00-5.40); WHITE BLOOD COUNT 4.2 10^3/uL (4.0-10.0)
[2021-03-19 07:17] LABS: ALBUMIN 2.1 GM/DL (3.2-5.2); ALT/SGPT 22 U/L (12-78); BILIRUBIN,TOTAL 0.5 MG/DL (0.2-1.0); BLOOD UREA NITROGEN 6 MG/DL (7-18); CALCIUM LEVEL 7.9 MG/DL (8.8-10.2); CARBON DIOXIDE LEVEL 24 MEQ/L (21-32); CHLORIDE LEVEL 112 MEQ/L (98-107); CREATININE FOR GFR 0.69 MG/DL (0.55-1.30); GLOMERULAR FILTRATION RATE > 60.0 (>39); GLUCOSE, FASTING 78 MG/DL (70-100); POTASSIUM SERUM 3.5 MEQ/L (3.5-5.1); SODIUM LEVEL 144 MEQ/L (136-145); TOTAL PROTEIN 5.3 GM/DL (6.4-8.2)
[2021-03-19] MEDS ORDERED: metroNIDAZOLE 500 MG in IV 1 EA IV SCH (08:00)
[2021-03-19] MEDS: HEPARIN SOD (PORCINE) 5000UNITS/ML 1ML VIAL/SYRINGE SQ SCH (09:16)
--- NOTE | 2021-03-19 10:06 | IPNPDOC ---
Text Note Date of Service The patient was seen on 03/19/21. NOTE Subjective: Patient is a 80-year-old female with a PMHx of CHRISTIE (non-compliant with CPAP), Chronic venous insufficiency, Hx of Breast CA, Anxiety / Depression , who presented to the ER on 03/11 with complaint of generalized weakness for 2 weeks, associated with poor oral intake. Patient has had multiple falls over the last 2 weeks prior to admission. In the ER, patient was noted to have acute kidney injury and was admitted to the hospitalist service for further evaluation and treatment. Patient was seen and examined at the bedside. Patient reports some improvement of her nausea. Has not experience any vomiting. Denies chest pain, shortness breath, palpitations. Reports some abdominal discomfort mostly in her left lower area. Denies any diarrhea, or urinary discomfort. Objective: Vitals (See below) General: Lying in bed, no acute distress, comfortable, AAOx3 HEENT: NC, AT CVS: +S1S2 Lungs: Fair air entry b/l, -w/r/r Abdomen: Soft, nondistended. Tenderness noted at left lower quadrant Extremities: Nonpitting edema Imaging: CT cervical spine 03/11: Osteopenia and degenerative spondylosis. No evidence for acute pathology or trauma/injury. CXR 03/11: No acute cardiopulmonary process appreciated. CT head 03/11: Atrophy and microvascular ischemic changes. No acute intracranial hemorrhage, infarction, or mass/mass effect. CT abdomen / pelvis 03/11: No acute abdominopelvic pathology appreciated. CT chest 03/11: No acute mediastinal or pleuroparenchymal process. Renal US 03/12: Sonographic findings suggestive of chronic medical renal disease. No focal renal abnormality and no hydronephrosis seen. Abdomen XR 03/18: No evidence of bowel obstruction. CT abdomen / pelvis 03/18: Acute sigmoid diverticulitis changes (moderate in severity). No abscess. No bowel obstruction. No free air. S/P cholecystectomy. Trace right pleural effusion. Assessment and plan: Abdominal pain - likely 2/2 acute diverticulitis - Patient reports some left lower quadrant abdominal pain that has improved this morning - She remains hemodynamically stable and afebrile - No leukocytosis or lactic acidosis - CRP slightly elevated; will trend - Imaging noted above - c/w Clear liquid diet for now; will advance as tolerated - Will adjust antibiotic therapy to Cefdinir / Flagyl PO; Will DC Ceftriaxone / Flagyl IV Small pleural effusion - Patient denies any short of breath - Saturating well on room air - Will stop IV fluid hydration - Will continue to hold Lasix Generalized weakness / Falls / Dizziness - likely 2/2 dehydration 2/2 orthostatic hypotension - On admission, patient was found to have acute kidney injury and was hydrated - Her orthostatic vital signs remained positive and hydration was continued - c/w PT and OT; will likely need home with services on discharge Suspected prior UTI - s/p Augmentin for 5 days s/p WILBUR - Cr has remained normalized Chronic venous insufficiency - Will continue to hold Lasix Chronic back pain - c/w Tylenol PRN Obesity - BMI of 34.1 - Complicating medical care DVT prophylaxis - c/w Heparin Disposition: - Pending clinical improvement [facility] Laboratory Tests 03/18/21 16:59 03/19/21 06:09 Vital Signs Date Time Temp Pulse Resp B/P (MAP) Pulse Ox O2 Delivery O2 Flow Rate FiO2 03/19/21 05:17 98.5 75 20 101/70 (80) 95 Room Air I&O- Last 24 Hours up to 6 AM 03/19/21 06:00 Intake Total 820 ml Balance 820 ml BELINDA MONROY MD Mar 19, 2021 10:06
[2021-03-19 11:24] LABS: C REACTIVE PROTEIN QUANTITATIV 4.05 MG/DL (0.00-0.30)
[2021-03-19 14:00] VITALS: BP 110/59
[2021-03-19] MEDS ORDERED: metroNIDAZOLE (FLAGYL) 500MG TABLET PO SCH (16:00)
[2021-03-19] MEDS ORDERED: CEFD300CAP PO (17:30)
[2021-03-19] MEDS ORDERED: METR-265 PO (17:30)
--- NOTE | 2021-03-19 17:53 | DS.PDOC ---
Discharge Summary General Date of Admission Mar 11, 2021 at 19:17 Date of Discharge 03/19/2021 Discharge Summary PROCEDURES PERFORMED DURING STAY: [None]. ADMITTING DIAGNOSES / DISCHARGE DIAGNOSES: Abdominal pain - likely 2/2 acute diverticulitis Small pleural effusion Generalized weakness / Falls / Dizziness - likely 2/2 dehydration 2/2 orthostatic hypotension Suspected prior UTI s/p WILBUR Chronic venous insufficiency Chronic back pain Obesity DVT prophylaxis COMPLICATIONS/CHIEF COMPLAINT: Weakness HISTORY OF PRESENT ILLNESS: Patient is a 80-year-old female with a PMHx of CHRISTIE (non-compliant with CPAP), Chronic venous insufficiency, Hx of Breast CA, Anxiety / Depression , who presented to the ER on 03/11 with complaint of generalized weakness for 2 weeks, associated with poor oral intake. Patient has had multiple falls over the last 2 weeks prior to admission. In the ER, patient was noted to have acute kidney injury and was admitted to the hospitalist service for further evaluation and treatment. Patient was seen and examined at the bedside. Patient reports some improvement of her nausea. Had reported some vomiting after eating soup. Denies chest pain, shortness breath, palpitations. Reports some abdominal discomfort mostly in her left lower area, improved compared to yesterday. Denies any diarrhea, or urinary discomfort. Patient had consumed a full meal this evening without any difficulty. She has been ambulating the hallways without any difficulty. HOSPITAL COURSE: Abdominal pain - likely 2/2 acute diverticulitis - Patient reports some left lower quadrant abdominal pain that has improved this morning - She remains hemodynamically stable and afebrile - No leukocytosis or lactic acidosis - CRP slightly elevated; will trend - Imaging noted above - c/w Clear liquid diet for now; will advance as tolerated - Will adjust antibiotic therapy to Cefdinir / Flagyl PO; Will DC Ceftriaxone / Flagyl IV - Will have outpatient follow up with PCP within 7 days Small pleural effusion - Patient denies any short of breath - Saturating well on room air - s/p IV fluid hydration - Will continue to hold Lasix on discharge Generalized weakness / Falls / Dizziness - likely 2/2 dehydration 2/2 orthostatic hypotension - On admission, patient was found to have acute kidney injury and was hydrated - Her orthostatic vital signs remained positive and hydration was continued - c/w PT and OT; will likely need home with services on discharge Suspected prior UTI - s/p Augmentin for 5 days s/p WILBUR - Cr has remained normalized Chronic venous insufficiency - Will continue to hold Lasix Chronic back pain - c/w Tylenol PRN Obesity - BMI of 34.1 - Complicating medical care DVT prophylaxis - c/w Heparin DISCHARGE MEDICATIONS: Please see below. ALLERGIES: Please see below. PHYSICAL EXAMINATION ON DISCHARGE: Vitals (See below) General: Lying in bed, appears comfortable, AAOx3 HEENT: NC, AT CVS: +S1S2 Lungs: Fair air entry b/l, Abdomen: Soft, nondistended. Tenderness noted at left lower quadrant Extremities: Nonpitting edema LABORATORY DATA: Please see below. IMAGING: CT cervical spine 03/11: Osteopenia and degenerative spondylosis. No evidence for acute pathology or trauma/injury. CXR 03/11: No acute cardiopulmonary process appreciated. CT head 03/11: Atrophy and microvascular ischemic changes. No acute intracranial hemorrhage, infarction, or mass/mass effect. CT abdomen / pelvis 03/11: No acute abdominopelvic pathology appreciated. CT chest 03/11: No acute mediastinal or pleuroparenchymal process. Renal US 03/12: Sonographic findings suggestive of chronic medical renal disease. No focal renal abnormality and no hydronephrosis seen. Abdomen XR 03/18: No evidence of bowel obstruction. CT abdomen / pelvis 03/18: Acute sigmoid diverticulitis changes (moderate in severity). No abscess. No bowel obstruction. No free air. S/P cholecystectomy. Trace right pleural effusion. ACTIVITY: [As tolerated]. DISCHARGE PLAN: Follow-up with primary care provider within the next 7 days Remain compliant with treatment plan and medications Return to the ER if you experience any problems DISPOSITION: Home with services DISCHARGE CONDITION: [Stable]. TIME SPENT ON DISCHARGE: 35 minutes. Vital Signs/I&Os Vital Signs Date Time Temp Pulse Resp B/P (MAP) Pulse Ox O2 Delivery O2 Flow Rate FiO2 03/19/21 05:17 98.5 75 20 101/70 (80) 95 Room Air I&O- Last 24 Hours up to 6 AM 03/19/21 06:00 Intake Total 820 ml Balance 820 ml Laboratory Data Labs 24H Laboratory Tests 2 03/19/21 06:09: Immature Granulocyte % (Auto) 0.5, Neutrophils (%) (Auto) 60.1, Lymphocytes (%) (Auto) 24.4, Monocytes (%) (Auto) 10.0H, Eosinophils (%) (Auto) 4.3H, Basophils (%) (Auto) 0.7, Neutrophils # (Auto) 2.5, Lymphocytes # (Auto) 1.0L, Monocytes # (Auto) 0.4, Eosinophils # (Auto) 0.2, Basophils # (Auto) 0.0, Nucleated Red Blood Cells % (auto) 0.0, Anion Gap 8, Glomerular Filtration Rate > 60.0, Lactic Acid Level 0.9, Calcium Level 7.9L, Magnesium Level 1.8, Total Bilirubin 0.5, Aspartate Amino Transf (AST/SGOT) 24, Alanine Aminotransferase (ALT/SGPT) 22, Alkaline Phosphatase 66, C-Reactive Protein, Quantitative 4.05H, Total Protein 5.3L, Albumin 2.1L, Albumin/Globulin Ratio 0.7L CBC/BMP Laboratory Tests 03/19/21 06:09 Microbiology Microbiology 03/11/21 Urine Culture - Final, Complete 03/11/21 Blood Culture - Final, Complete NO GROWTH AFTER 5 DAYS 03/11/21 Respiratory Virus Panel (PCR) (TRAE) - Final, Complete 03/11/21 Blood Culture - Final, Complete NO GROWTH AFTER 5 DAYS Discharge Medications Scheduled Cefdinir (Cefdinir) 300 Mg Capsule, 300 MG PO BID Metronidazole (Metronidazole) 500 Mg Tablet, 500 MG PO TID Allergies Coded Allergies: codeine (Verified Allergy, Intermediate, hives, 07/27/18) BELINDA MONROY MD Mar 19, 2021 17:53
[2021-03-19] MEDS ORDERED: CEFDINIR 300 MG CAP (OMNICEF) PO SCH (21:00)
== END 2021-03-19 18:59 | disposition home health service (06) | DRG 683 ==
LOC: M ED 13:15 → EDBD 13:15 → M ED INP 19:17 → ENRESERV 03-12 07:43 → M MS5PR 03-12 08:20
PROVIDERS: ADMIT Internal Medicine; ATTEND Internal Medicine
DX: N17.9 Acute kidney failure, unspecified (principal); N39.0 Urinary tract infection, site not specified; K57.32 Diverticulitis of large intestine without perforation or abscess without bleeding; J90 Pleural effusion, not elsewhere classified; R53.1 Weakness; I87.2 Venous insufficiency (chronic) (peripheral); E66.9 Obesity, unspecified; Z68.34 Body mass index [BMI] 34.0-34.9, adult; E86.0 Dehydration; I95.1 Orthostatic hypotension; I87.8 Other specified disorders of veins; M54.50 Low back pain, unspecified; Z91.19 Patient's noncompliance with other medical treatment and regimen; G47.33 Obstructive sleep apnea (adult) (pediatric); Z85.3 Personal history of malignant neoplasm of breast; F41.9 Anxiety disorder, unspecified; F32.9 Major depressive disorder, single episode, unspecified; Z88.5 Allergy status to narcotic agent

== ENCOUNTER → 2021-11-18 | Outpatient (REF) | payer MEDICARE ==
[~2021-11-18] MED LIST changes: +CEFD300CAP PO; +FURO40TA2 PO; +IBUP1TAB7 PO; +METR-265 PO; +POTA-151; -POTA20TA6
== END ==
LOC: M LAB REF 16:06
PROVIDERS: ATTEND Internal Medicine
DX: R41.81 Age-related cognitive decline (principal)

== ENCOUNTER → 2023-03-30 | Outpatient (REF) | payer MEDICARE ==
[2023-03-30 13:01] LABS: FOLATE 8.3 NG/ML (>5.4)
== END ==
LOC: M LAB REF 12:12
PROVIDERS: ATTEND Internal Medicine
DX: R41.81 Age-related cognitive decline (principal)